=== PATIENT | male | born 1930 | race Caucasian/White ===

== ENCOUNTER 2017-04-29 10:58 | Inpatient (IN) | payer OTHER ==
[~2017-04-29] VITALS: Ht 185.4 cm; Wt 69.4 kg
[2017-04-29 11:43] VITALS: BP 143/81
--- NOTE | 2017-04-29 11:56 | EKG ---
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
[2017-04-29 12:08] LABS: BASO % 0 % (0-3); EOS % 0 % (0-3); HEMATOCRIT 31.1 % (39.0-53.0); HEMOGLOBIN 10.4 g/dL (13.0-17.5); LYMPH # 0.4 x10^3/uL (1.0-4.8); LYMPH % 6 % (24-48); MEAN CORPUSCULAR HEMOGLOBIN 31 pg (25-35); MEAN CORPUSCULAR HGB CONC 33 g/dL (31-37); MEAN CORPUSCULAR VOLUME 92 fL (79-100); MONO # 0.4 x10^3/uL (0.0-1.1); MONO % 6 % (0-9); NEUT # 5.5 x10^3uL (1.8-7.7); NEUT % 87 % (31-73); PLATELET COUNT 123 x10^3/uL (140-400); RED BLOOD COUNT 3.36 x10^6/uL (4.30-5.70); RED CELL DISTRIBUTION WIDTH 20.1 % (11.5-14.5); WHITE BLOOD COUNT 6.4 x10^3/uL (4.0-11.0)
[2017-04-29 12:18] LABS: ALBUMIN 2.7 g/dL (3.4-5.0); ALBUMIN/GLOBULIN RATIO 0.7 (1.0-1.7); CALCIUM 8.7 mg/dL (8.5-10.1); GFR 70.5; MAGNESIUM 1.9 mg/dL (1.8-2.4); TOTAL BILIRUBIN 0.9 mg/dL (0.2-1.0); TOTAL PROTEIN 6.6 g/dL (6.4-8.2)
[2017-04-29] MEDS ORDERED: FURO40TA4 PO (13:05)
[2017-04-29] MEDS ORDERED: IPRA3AMP NEB (13:05)
[2017-04-29] MEDS ORDERED: POTA10TA10 PO (13:05)
[2017-04-29 13:29] LABS: ANISOCYTOSIS MOD; OVALOCYTES MOD; PLT ESTIMATE DECREASED (ADEQUATE); TEAR DROP CELLS FEW
[2017-04-29] MEDS: FUROSEMIDE 40 MG/4 ML VIAL IVP SCH (13:57)
[2017-04-29 14:55] LABS: BACTERIA,URINE 0 /HPF (0-FEW); BILIRUBIN,URINE NEG (NEG); CLARITY,URINE CLEAR; COLOR,URINE YELLOW; GLUCOSE,URINE NEG (NEG); NITRITE,URINE NEG (NEG); RBC,URINE 0 /HPF (0-2); SQUAMOUS EPITHELIAL CELL,UR OCC /LPF; UROBILINOGEN,URINE 0.2 mg/dL (0.2 mg/dL); WBC,URINE OCC /HPF (0-4)
--- NOTE | 2017-04-29 16:17 | PDOC2 ---
EMELY BROCK OUTSIDE UPHOLSTERER 04/29/17 1617: CONSULT Date of Admission DATE: 04/29/17 TIME: 16:00 Reason for Consult: Congestive heart failure Referring Physician: Dr Buchanan History of Present Illness this is a pleasant 86-year-old male who presented to his primary care office yesterday with chief complaint of shortness of breath. The patient does have an extensive past cardiac history which includes a history of coronary artery disease status post CABG several years ago. The patient also has a history of chronic atrial fibrillation, heart failure with preserved ejection fraction, essential hypertension, pleural effusion and hyperlipidemia. yesterday he went into his primary care doctor's office with chief complaint of shortness of breath. He had lab work done that showed he had an elevated D-dimer and the asked him to have a CT scan done. Today he went in to have the CT and was found to have a large pleural effusion and he was then asked to be a direct admit to [facility]. He has had some swelling in his lower extremities left greater than right which is common for him. He has noticed shortness of breath walking less than 200 feet distance. He has noticed when he lays back at night he would be short of breath but is not awaken up gasping for breath. He denies any chest pain or palpitations. He does have a prior history of pleural effusion which had to be to drain twice last year. Of note, the patient has been trialed on beta-aurelia as well as digoxin, but did not tolerate these medications in the past due to significant bradycardia. He also has been talked to about taking cholesterol medication and anticoagulation and has refused. At this point he is resting in bed getting his echocardiogram done without significant shortness of breath. His bed is elevated at 45. Past Medical History - Is significant for chronic atrial fibrillation, diastolic heart failure, coronary artery disease status post coronary artery bypass grafting. Hyperlipidemia. Hypertension. Bradycardia Surgical History -is significant for coronary artery bypass grafting, back surgery and hernia repair. Family History Brother - Hodgkin's disease (clinical) ( age: 56) - Heart disease ( age: 56) Father - by electrocution ( age: 56) Mother - Rheumatoid arthritis ( age: 70) Social History Occupation: Retired Marital status: Live alone or with others?: alone Number of children: 7 Diet: Regular Exercise level: Occasional (Notes: ball room dancing) Smoking Status: Never smoker Alcohol intake: Occasional Caffeine intake: Moderate (Notes: 1-2 glasses daily) Allergies - no known drug allergies Medications-see below Review of a systems- review of 10 organ systems is negative except for as above. Physical Exam Constitutional: General Appearance: well-nourished and appears stated age. Level of Distress: comfortable. Psychiatric: Mental Status: alert and normal affect. Orientation: oriented to time, place, and person. Eyes: Lids and Conjunctivae: anicteric and no discharge. Pupils: PERRLA. ENMT: Ears: no lesions on external ear. Nose: no lesions on external nose. Oropharynx: no cyanosis or pallor. Neck: Neck: supple and no masses. Carotid Arteries: no bruits or thrills and bilateral normal upstroke. Jugular Veins: normal jugular venous pressure. Cervical Lymph Nodes: non tender or not enlarged. Thyroid: not enlarged or non tender. Lungs: Respiratory Effort: unlabored. Chest Exam: no chest wall tenderness. Auscultation: no wheezing or rhonchi and clear. Cardiovascular: Rate And Rhythm: irregularly irregular. Heart Sounds: no rub, gallop, or click and physiologically split S2 and S1 varying intensity. Systolic Murmur: grade 2/6 at the LUSB . Extremities: no cyanosis and lower extremity edema left greater than right +1 Peripheral Pulses: Pulses: full and equal in all extremities except if noted. Radial Pulse: normal. Femoral Pulse: normal. Abdomen: Inspection and Palpation: non distended or tender, no bruit or masses, and soft. Neurologic: Neurological: Grossly intact with no focal deficits. Skin: Inspection and Palpation: warm and dry. Procedure Documentation ABDOMINAL AORTA / ILIAC IMAGING IMPRESSION (07/17/16): Normal appearing abdominal aorta with mild plaque, and no significant flow limiting lesions. No evidence of abdominal aortic aneurysm noted. Normal sized bilateral common iliac arteries. LEXISCAN NUCLEAR STRESS TEST IMPRESSION (11/25/2015): Hemodynamic response: There was a normal heart rate and a normal blood pressure response to stress. Clinical response: There was no chest pain during stress. Arrhythmias: Atrial fibrillation. Stress ECG: There were no significant stress induced ECG changes. Myocardial perfusion: There was a small, moderately intense, fixed septal defect with no evidence of ischemia. Wall motion: Wall motion analysis revealed paradoxical septal motion secondary to unclear etiology. Ejection fraction: 78%. No previous study available for comparison. ECHOCARDIOGRAM IMPRESSION (11/25/2015): The left ventricle is normal in size. There is mild to moderate concentric left ventricular hypertrophy. The left ventricular systolic function is normal with an estimated ejection fraction of 60-65%. The left ventricular diastolic function could not be determined on this study. The right ventricle appears moderately dilated but with normal function. The left atrium appears moderately dilated. The right atrium appears severely dilated. There is a prominent Chiari network in the right ventricle and atrium. The inferior vena cava is dilated and does not respond normally to respiration, which is consistent with elevated right atrial pressure. There appears to be a right pleural effusion. The proximal ascending aorta appears mildly dilated at 3.5 cm. There is mild aortic valve sclerosis. There is mild mitral valve thickening with normal excursion. There is moderate to severe tricuspid regurgitation. The estimated pulmonary artery systolic pressure is 49 mmHg, consistent with moderate pulmonary hypertension. No previous study available for comparison. Assessment / Plan Acute on chronic heart failure, diastolic. Agree with changing Lasix to IV. He has had recurrent pleural effusion in the past which has had to be tapped. May need to consider repeat thoracentesis. Atrial fibrillation, Chronic. His rate is well controlled without AV claudia blocking agents. We had a short discussion on anticoagulation and at this point he is not interested. Coronary arteriosclerosis in [place] artery with history of CABG- Lexiscan nuclear stress test 11/2015 demonstrated no evidence of ischemia. The patient denies any anginal symptoms. Stable. Hyperlipidemia - check fasting lipids Current Medications Current Medications Furosemide (Lasix) 40 mg DAILY IVP Last administered on 04/29/17at 13:57; Start 04/29/17 at 13:00 Active Scripts Active Reported Potassium Chloride 10 Meq Tablet.er 20 Meq PO DAILY Furosemide 40 Mg Tablet 40 Mg PO BID Duoneb 0.5-3(2.5) Mg/3 Ml (Albuterol/Ipratropium) 3 Ml Ampul.neb 3 Ml NEB QID Allergies: Coded Allergies: No Known Drug Allergies (Unverified , 04/29/17) VITALS Vital Signs Date Time Temp Pulse Resp B/P (MAP) Pulse Ox O2 Delivery O2 Flow Rate FiO2 04/29/17 11:43 97.9 83 22 143/81 (101) 94 Room Air Labs Laboratory Tests Test 04/29/17 11:39 04/29/17 11:45 04/29/17 14:20 White Blood Count 6.4 x10^3/uL (4.0-11.0) Red Blood Count 3.36 x10^6/uL (4.30-5.70) Hemoglobin 10.4 g/dL (13.0-17.5) Hematocrit 31.1 % (39.0-53.0) Mean Corpuscular Volume 92 fL (79-100) Mean Corpuscular Hemoglobin 31 pg (25-35) Mean Corpuscular Hemoglobin Concent 33 g/dL (31-37) Red Cell Distribution Width 20.1 % (11.5-14.5) Platelet Count 123 x10^3/uL (140-400) Neutrophils (%) (Auto) 87 % (31-73) Lymphocytes (%) (Auto) 6 % (24-48) Monocytes (%) (Auto) 6 % (0-9) Eosinophils (%) (Auto) 0 % (0-3) Basophils (%) (Auto) 0 % (0-3) Neutrophils # (Auto) 5.5 x10^3uL (1.8-7.7) Lymphocytes # (Auto) 0.4 x10^3/uL (1.0-4.8) Monocytes # (Auto) 0.4 x10^3/uL (0.0-1.1) Eosinophils # (Auto) 0.0 x10^3/uL (0.0-0.7) Basophils # (Auto) 0.0 x10^3/uL (0.0-0.2) Platelet Estimate Decreased (ADEQUATE) Anisocytosis Mod Tear Drop Cells Few Ovalocytes Mod D-Dimer (Maricruz) 2.13 mg/L (0.00-0.50) Sodium Level 140 mmol/L (136-145) Potassium Level 4.0 mmol/L (3.5-5.1) Chloride Level 105 mmol/L (98-107) Carbon Dioxide Level 28 mmol/L (21-32) Anion Gap 7 (6-14) Blood Urea Nitrogen 23 mg/dL (8-26) Creatinine 1.0 mg/dL (0.7-1.3) Estimated GFR (Cockcroft-Gault) 70.5 BUN/Creatinine Ratio 23 (6-20) Glucose Level 87 mg/dL (70-99) Calcium Level 8.7 mg/dL (8.5-10.1) Magnesium Level 1.9 mg/dL (1.8-2.4) Total Bilirubin 0.9 mg/dL (0.2-1.0) Aspartate Amino Transf (AST/SGOT) 26 U/L (15-37) Alanine Aminotransferase (ALT/SGPT) 14 U/L (16-63) Alkaline Phosphatase 80 U/L (46-116) Creatine Kinase 37 U/L (39-308) Creatine Kinase MB (Mass) 1.1 ng/mL (0.0-3.6) Creatine Kinase MB Relative Index 3.0 % (0-4) Troponin I Quantitative < 0.017 ng/mL (0-0.055) ME-Nik-L-Type Natriuretic Peptide 2015 pg/mL (0-449) Total Protein 6.6 g/dL (6.4-8.2) Albumin 2.7 g/dL (3.4-5.0) Albumin/Globulin Ratio 0.7 (1.0-1.7) Lactic Acid Level 1.7 mmol/L (0.4-2.0) Urine Collection Type Unknown Urine Color Yellow Urine Clarity Clear Urine pH 6.5 Urine Specific [place] 1.010 Urine Protein 30 mg/dl (NEG-TRACE) Urine Glucose (UA) Neg mg/dL (NEG) Urine Ketones (Stick) Neg mg/dL (NEG) Urine Blood Neg (NEG) Urine Nitrite Neg (NEG) Urine Bilirubin Neg (NEG) Urine Urobilinogen Dipstick 0.2 mg/dL (0.2 mg/dL) Urine Leukocyte Esterase Neg (NEG) Urine RBC 0 /HPF (0-2) Urine WBC Occ /HPF (0-4) Urine Squamous Epithelial Cells Occ /LPF Urine Bacteria 0 /HPF (0-FEW) Urine Mucus Slight /LPF LEON SPRING Jr, MD 04/30/17 0622: CONSULT Allergies: Coded Allergies: No Known Drug Allergies (Unverified , 04/29/17) Assessment/Plan The patient was seen by Emely Brock APRN and I have reviewed her findings and plan and agree with above. Due to staffing constraints, we did not have an attending available on this day to see the patient. Leon Spring Jr., MD Problems: EMELY BROCK APRN Apr 29, 2017 16:17 LEON SPRING Jr, MD Apr 30, 2017 06:22
[2017-04-29 16:32] VITALS: BP 129/77
[2017-04-29 19:21] VITALS: BP 124/73
[2017-04-29] MEDS: cefTRIAXone IV Push 1 GM VIAL. IVP SCH (20:09)
[2017-04-29] MEDS: LACTOBACILLUS RHAMNOSUS GG 1 CAPSULE. PO SCH (20:10)
[2017-04-29] MEDS: POTASSIUM CHLORIDE 20 MEQ TABLET.ER. PO SCH (20:12)
[2017-04-29] MEDS: IPRATRPIUM/ALBUTEROL 0.5/2.5MG 3 ML NEBU. NEB SCH (21:15)
[2017-04-29] MEDS: HEPARIN PF for SUB-Q USE 5,000 UNIT/0.5 ML VIAL. SQ SCH (21:49)
[2017-04-29 23:00] VITALS: BP 103/57
[2017-04-30] VITALS (7 sets, daily range): BP systolic 106–138; BP diastolic 57–68
[2017-04-30] MEDS: IPRATRPIUM/ALBUTEROL 0.5/2.5MG 3 ML NEBU. NEB SCH ×4 (05:52→20:56)
[2017-04-30] MEDS: HEPARIN PF for SUB-Q USE 5,000 UNIT/0.5 ML VIAL. SQ SCH ×3 (06:24→20:52)
[2017-04-30 06:37] LABS: BASO % 0 % (0-3); EOS % 1 % (0-3); HEMOGLOBIN 9.6 g/dL (13.0-17.5); LYMPH # 0.6 x10^3/uL (1.0-4.8); LYMPH % 14 % (24-48); MEAN CORPUSCULAR HEMOGLOBIN 30 pg (25-35); MEAN CORPUSCULAR HGB CONC 33 g/dL (31-37); MEAN CORPUSCULAR VOLUME 91 fL (79-100); MONO # 0.3 x10^3/uL (0.0-1.1); MONO % 7 % (0-9); NEUT # 3.6 x10^3uL (1.8-7.7); NEUT % 79 % (31-73); PLATELET COUNT 107 x10^3/uL (140-400); RED BLOOD COUNT 3.18 x10^6/uL (4.30-5.70); RED CELL DISTRIBUTION WIDTH 19.7 % (11.5-14.5); WHITE BLOOD COUNT 4.6 x10^3/uL (4.0-11.0)
[2017-04-30 06:48] LABS: ALBUMIN 2.3 g/dL (3.4-5.0); ALBUMIN/GLOBULIN RATIO 0.7 (1.0-1.7); GFR 70.5; MAGNESIUM 1.6 mg/dL (1.8-2.4); POTASSIUM 4.3 mmol/L (3.5-5.1); TOTAL BILIRUBIN 0.7 mg/dL (0.2-1.0); TOTAL PROTEIN 5.8 g/dL (6.4-8.2)
[2017-04-30] MEDS ORDERED: MAGNESIUM SULFATE 2GM 50 ML IV ONE (07:30)
[2017-04-30] MEDS: LACTOBACILLUS RHAMNOSUS GG 1 CAPSULE. PO SCH ×2 (08:00→20:51)
[2017-04-30] MEDS: POTASSIUM CHLORIDE 20 MEQ TABLET.ER. PO SCH (08:00)
[2017-04-30] MEDS: FUROSEMIDE 40 MG/4 ML VIAL IVP SCH ×2 (08:01→16:55)
--- NOTE | 2017-04-30 08:35 | PDOC ---
EMELY SWAIN GAME PRESERVE MANAGER 04/30/17 0835: PROGRESS NOTES Assessment We are seeing the patient for congestive heart failure Acute on chronic heart failure, diastolic. He has recieved two doses of IV Lasix. His albumin is 2.3 promoting the 3rd spacing of fluid. He has had recurrent pleural effusion in the past which has had to be tapped by Dr Valdivia - [facility] at [facility]. May need to consider repeat thoracentesis and increasing protein. Atrial fibrillation, Chronic. His rate is well controlled without AV claudia blocking agents. We had a longer discussion about anticoagulation and he will start aspirin and would consider taking once a day Xarelto as an OP. Hold off on starting till thoracentesis is complete. Coronary arteriosclerosis in [place] artery with history of CABG- Lexiscan nuclear stress test 11/2015 demonstrated no evidence of ischemia. The patient denies any anginal symptoms. Stable. Hyperlipidemia - lipids pending Problems: Subjective He has been up walking and breathing feels improved. He is not requiring supplemental oxygen. He does have orthopnea and mild cough. He denies any chest pain or palpitations. Objective Vital Signs Date Time Temp Pulse Resp B/P (MAP) Pulse Ox O2 Delivery O2 Flow Rate FiO2 04/30/17 08:18 Room Air 04/30/17 06:00 97.8 104 16 106/57 (73) 95 04/30/17 05:47 2.0 Intake and Output 04/30/17 06:59 Intake Total 2210 ml Output Total 2850 ml Balance -640 ml Intake Oral 2210 ml Output Urine Total 2850 ml Abdomen: Normal bowel sounds, Soft, No tenderness Heart: Regular rate, Normal S1, Normal S2, Other (Irregular rhythm ) Extremities: No edema, Normal pulses General: Alert, Oriented X3, Cooperative Lungs: Other (diminished) Psych/Mental Status: Mental status NL, Mood NL Review of Relevant I have reviewed the following items mansi (where applicable) has been applied. Labs Laboratory Tests Test 04/29/17 11:30 04/29/17 11:39 04/29/17 11:45 04/29/17 14:20 Nasal Screen MRSA (PCR) Negative (Negative) White Blood Count 6.4 x10^3/uL (4.0-11.0) Red Blood Count 3.36 x10^6/uL (4.30-5.70) Hemoglobin 10.4 g/dL (13.0-17.5) Hematocrit 31.1 % (39.0-53.0) Mean Corpuscular Volume 92 fL (79-100) Mean Corpuscular Hemoglobin 31 pg (25-35) Mean Corpuscular Hemoglobin Concent 33 g/dL (31-37) Red Cell Distribution Width 20.1 % (11.5-14.5) Platelet Count 123 x10^3/uL (140-400) Neutrophils (%) (Auto) 87 % (31-73) Lymphocytes (%) (Auto) 6 % (24-48) Monocytes (%) (Auto) 6 % (0-9) Eosinophils (%) (Auto) 0 % (0-3) Basophils (%) (Auto) 0 % (0-3) Neutrophils # (Auto) 5.5 x10^3uL (1.8-7.7) Lymphocytes # (Auto) 0.4 x10^3/uL (1.0-4.8) Monocytes # (Auto) 0.4 x10^3/uL (0.0-1.1) Eosinophils # (Auto) 0.0 x10^3/uL (0.0-0.7) Basophils # (Auto) 0.0 x10^3/uL (0.0-0.2) Platelet Estimate Decreased (ADEQUATE) Anisocytosis Mod Tear Drop Cells Few Ovalocytes Mod D-Dimer (Maricruz) 2.13 mg/L (0.00-0.50) Sodium Level 140 mmol/L (136-145) Potassium Level 4.0 mmol/L (3.5-5.1) Chloride Level 105 mmol/L (98-107) Carbon Dioxide Level 28 mmol/L (21-32) Anion Gap 7 (6-14) Blood Urea Nitrogen 23 mg/dL (8-26) Creatinine 1.0 mg/dL (0.7-1.3) Estimated GFR (Cockcroft-Gault) 70.5 BUN/Creatinine Ratio 23 (6-20) Glucose Level 87 mg/dL (70-99) Calcium Level 8.7 mg/dL (8.5-10.1) Magnesium Level 1.9 mg/dL (1.8-2.4) Total Bilirubin 0.9 mg/dL (0.2-1.0) Aspartate Amino Transf (AST/SGOT) 26 U/L (15-37) Alanine Aminotransferase (ALT/SGPT) 14 U/L (16-63) Alkaline Phosphatase 80 U/L (46-116) Creatine Kinase 37 U/L (39-308) Creatine Kinase MB (Mass) 1.1 ng/mL (0.0-3.6) Creatine Kinase MB Relative Index 3.0 % (0-4) Troponin I Quantitative < 0.017 ng/mL (0-0.055) RJ-Ctm-N-Type Natriuretic Peptide 2015 pg/mL (0-449) Total Protein 6.6 g/dL (6.4-8.2) Albumin 2.7 g/dL (3.4-5.0) Albumin/Globulin Ratio 0.7 (1.0-1.7) Lactic Acid Level 1.7 mmol/L (0.4-2.0) Urine Collection Type Unknown Urine Color Yellow Urine Clarity Clear Urine pH 6.5 Urine Specific [place] 1.010 Urine Protein 30 mg/dl (NEG-TRACE) Urine Glucose (UA) Neg mg/dL (NEG) Urine Ketones (Stick) Neg mg/dL (NEG) Urine Blood Neg (NEG) Urine Nitrite Neg (NEG) Urine Bilirubin Neg (NEG) Urine Urobilinogen Dipstick 0.2 mg/dL (0.2 mg/dL) Urine Leukocyte Esterase Neg (NEG) Urine RBC 0 /HPF (0-2) Urine WBC Occ /HPF (0-4) Urine Squamous Epithelial Cells Occ /LPF Urine Bacteria 0 /HPF (0-FEW) Urine Mucus Slight /LPF Test 04/30/17 05:44 White Blood Count 4.6 x10^3/uL (4.0-11.0) Red Blood Count 3.18 x10^6/uL (4.30-5.70) Hemoglobin 9.6 g/dL (13.0-17.5) Hematocrit 29.0 % (39.0-53.0) Mean Corpuscular Volume 91 fL (79-100) Mean Corpuscular Hemoglobin 30 pg (25-35) Mean Corpuscular Hemoglobin Concent 33 g/dL (31-37) Red Cell Distribution Width 19.7 % (11.5-14.5) Platelet Count 107 x10^3/uL (140-400) Neutrophils (%) (Auto) 79 % (31-73) Lymphocytes (%) (Auto) 14 % (24-48) Monocytes (%) (Auto) 7 % (0-9) Eosinophils (%) (Auto) 1 % (0-3) Basophils (%) (Auto) 0 % (0-3) Neutrophils # (Auto) 3.6 x10^3uL (1.8-7.7) Lymphocytes # (Auto) 0.6 x10^3/uL (1.0-4.8) Monocytes # (Auto) 0.3 x10^3/uL (0.0-1.1) Eosinophils # (Auto) 0.0 x10^3/uL (0.0-0.7) Basophils # (Auto) 0.0 x10^3/uL (0.0-0.2) Sodium Level 139 mmol/L (136-145) Potassium Level 4.3 mmol/L (3.5-5.1) Chloride Level 106 mmol/L (98-107) Carbon Dioxide Level 27 mmol/L (21-32) Anion Gap 6 (6-14) Blood Urea Nitrogen 21 mg/dL (8-26) Creatinine 1.0 mg/dL (0.7-1.3) Estimated GFR (Cockcroft-Gault) 70.5 BUN/Creatinine Ratio 21 (6-20) Glucose Level 82 mg/dL (70-99) Calcium Level 8.0 mg/dL (8.5-10.1) Magnesium Level 1.6 mg/dL (1.8-2.4) Total Bilirubin 0.7 mg/dL (0.2-1.0) Aspartate Amino Transf (AST/SGOT) 21 U/L (15-37) Alanine Aminotransferase (ALT/SGPT) 11 U/L (16-63) Alkaline Phosphatase 69 U/L (46-116) Total Protein 5.8 g/dL (6.4-8.2) Albumin 2.3 g/dL (3.4-5.0) Albumin/Globulin Ratio 0.7 (1.0-1.7) Medications Current Medications Furosemide (Lasix) 40 mg DAILY IVP Last administered on 04/30/17at 08:01; Start 04/29/17 at 13:00 Albuterol/ Ipratropium (Duoneb) 3 ml RTQID NEB Last administered on 04/30/17 05 :52; Start 04/29/17 at 20:00 Non-Formulary Medication 20 meq DAILY PO ; Start 04/30/17 at 09:00; Status UNV Ceftriaxone Sodium 1 gm/ Sodium Chloride 50 ml @ 100 mls/hr Q24H IV ; Start 04/29/17 at 18:30; Status UNV Levofloxacin/ Dextrose 150 ml @ 150 mls/hr Q24H IV Last administered on at 20:09; Start 04/29/17 at 20:00 Heparin Sodium (Porcine) (Heparin Sq) 5,000 unit Q8HRS SQ Last administered on 04/30/17at 06:24; Start 04/29/17 at 22:00 Potassium Chloride (Klor-Con) 20 meq DAILYWBKFT PO Last administered on at 08:00; Start 04/29/17 at 21:00 Ceftriaxone Sodium (Rocephin) 1 gm Q24H IVP Last administered on 04/29/17at 20:09 ; Start 04/29/17 at 19:30 Lactobacillus Rhamnosus (Culturelle) 1 cap BID PO Last administered on at 08:00; Start 04/29/17 at 21:00 Magnesium Sulfate 50 ml @ 25 mls/hr 1X ONCE IV Last administered on 04/30/17at 08:01; Start 04/30/17 at 07:30; Stop 04/30/17 at 09:29 Active Scripts Active Reported Potassium Chloride 10 Meq Tablet.er 20 Meq PO DAILY Furosemide 40 Mg Tablet 40 Mg PO BID Duoneb 0.5-3(2.5) Mg/3 Ml (Albuterol/Ipratropium) 3 Ml Ampul.neb 3 Ml NEB QID Vitals/I & O Vital Sign - Last 24 Hours 04/29/17 04/29/17 04/29/17 04/29/17 11:43 16:32 19:21 20:00 Temp 97.9 97.9 97.6 Pulse 83 74 71 Resp 22 22 20 B/P (MAP) 143/81 (101) 129/77 (94) 124/73 (90) Pulse Ox 94 94 97 O2 Delivery Room Air Room Air Room Air Room Air 04/29/17 04/29/17 04/29/17 04/30/17 20:54 23:00 23:59 04:00 Temp 98.2 Pulse 92 Resp 20 B/P (MAP) 103/57 (72) Pulse Ox 94 94 O2 Delivery Room Air Room Air Room Air Room Air 04/30/17 04/30/17 04/30/17 05:47 06:00 08:18 Temp 97.8 Pulse 104 Resp 16 B/P (MAP) 106/57 (73) Pulse Ox 96 95 O2 Delivery Nasal Cannula Room Air Room Air O2 Flow Rate 2.0 Intake and Output 04/29/17 04/29/17 04/30/17 14:59 22:59 06:59 Intake Total 700 ml 890 ml 620 ml Output Total 1600 ml 1250 ml Balance 700 ml -710 ml -630 ml LEON GAGE Jr, MD 04/30/17 0946: PROGRESS NOTES Assessment CHF, acute on chronic, with preserved ejection fraction. His symptoms are markedly improved today. We will obtain a follow-up chest x-ray to assess the pleural effusions. I will change his Lasix to twice daily. We will consider a thoracentesis if there is still a significant amount of right pleural fluid. I am not sure we should tapped both sides on the same day. If Radiology can tap the right side, and his symptoms are improved, he may be able to be discharged home later today or tomorrow. Atrial fibrillation, chronic. He has not been on anticoagulation in the past. Once he recovers from this illness, we may want to consider starting anticoagulation. Coronary artery disease. He is not having any angina. Due to his pulmonary disease, he is not a good candidate for beta-aurelia. He also has somewhat low blood pressures. We are holding off on treating him with aspirin until we determine whether not he will be on oral anticoagulation for the atrial fibrillation. Pure hypercholesterolemia. Lipid panel is pending. He may benefit from a low- dose of statin medication. Problems: Subjective We are seeing him for CHF. S: His breathing is much improved. He is ambulating without any significant dyspnea on exertion. He denies chest pain, palpitations, syncope, or lower extremity edema. Abdomen: Normal bowel sounds, Soft Heart: Normal S1, Normal S2, Other (Irregularly irregular. 2/6 systolic ejection murmur.) Extremities: No clubbing, No cyanosis, No edema, Normal pulses General: Alert, Oriented X3, Cooperative, No acute distress HEENT: Atraumatic, EOMI, Mucous membr. moist/pink Lungs: Clear to auscultation, Other ( Decreased breath sounds at the bases, right worse than left.) Neck: No JVD, +2 carotid pulse wo bruit Neuro: Normal gait, Normal speech, Strength at 5/5 X4 ext, Normal tone, Cranial nerves 3-12 NL Psych/Mental Status: Mental status NL, Mood NL Skin: No rashes, No breakdown EMELY SWAIN APRN Apr 30, 2017 08:35 LEON GAGE Jr, MD Apr 30, 2017 09:46
--- NOTE | 2017-04-30 08:39 | CARD ---
MR#: [id number] Date of Study: 04/29/2017 Ordering Physician: MARYSOL PATEL, Referring Physician: MARYSOL PATEL, Tech: Carmen Menjivar LUTHER APPROVED REPORT EXAM: Two-dimensional and M-mode echocardiogram with Doppler and color Doppler. Other Information Quality : Good INDICATION ICD: I50.33 Congestive Heart Failure 2D DIMENSIONS RVDd3.7 (2.9-3.5cm)Left Atrium(2D)4.9 (1.6-4.0cm) IVSd1.5 (0.7-1.1cm)Aortic Root(2D)3.3 (2.0-3.7cm) LVDd3.6 (3.9-5.9cm)LVOT Diameter2.2 (1.8-2.4cm) PWd1.2 (0.7-1.1cm)LVDs2.5 (2.5-4.0cm) FS (%) 29.5 %SV30.4 ml LVEF(%)57.4 (>50%) Aortic Valve AoV Peak Darell.157.7cm/sAoV VTI26.9cm AO Peak GR.9.9mmHgLVOT Peak Darell.92.8cm/s LVOT VTI 17.18cmAO Mean GR.6mmHg ELIA (VMAX)2.97dg9GAZ (VTI)2.41cm2 Mitral Valve MV E Ywkcqolu311.6cm/sMV DECEL CEVA369nm MV A Velocity4.9cm/sE/A Ratio32.4 Tricuspid Valve TR P. Arhhiirw069yr/sRAP QLAYNEAK62waDi TR Peak Gr.83vfRbJYCT35igLv LEFT VENTRICLE The left ventricle is normal size. There is mild to moderate concentric left ventricular hypertrophy. The left ventricular systolic function is normal. The estimated ejection fraction is 60-65%. There i s paradoxical septal motion of unclear etiology. The left ventricular diastolic function is indetermi sita. RIGHT VENTRICLE The right ventricle is normal size. The right ventricular systolic function is normal. ATRIA The left atrium is mildly dilated. The right atrium is severely dilated. AORTIC VALVE There is mild aortic valve sclerosis. There is trace aortic regurgitation. There is no significant ao rtic valvular stenosis. MITRAL VALVE The mitral valve is calcified but opens well. There is no mitral valve stenosis. There is mild mitral regurgitation. TRICUSPID VALVE The tricuspid valve is normal in structure and function. There is moderate-severe tricuspid regurgita tion. The PA pressure is estimated at 55 mmHg. There is moderate pulmonary hypertension. PULMONIC VALVE The pulmonary valve is normal in structure and function. There is trace pulmonic valvular regurgitati on. GREAT VESSELS The aortic root is normal in size. The ascending aorta is normal in size. The inferior vena cava is d ilated and there is less than 50% response to inspiration, which is consistent with markedly elevated right atrial pressure. PERICARDIAL EFFUSION There is large left pleural effusion. There is no evidence of significant pericardial effusion. Critical Notification Critical Value: No <Conclusion> The left ventricle is normal size. There is mild to moderate concentric left ventricular hypertrophy. There is paradoxical septal motion of unclear etiology. The left ventricular systolic function is normal. The estimated ejection fraction is 60-65%. The left ventricular diastolic function is indeterminate. The left atrium is mildly dilated. The right atrium is severely dilated. The inferior vena cava is dilated and there is less than 50% response to inspiration, which is consis tent with markedly elevated right atrial pressure. There is mild aortic valve sclerosis. There is trace aortic regurgitation. There is mild mitral regurgitation. There is moderate-severe tricuspid regurgitation. The PA pressure is estimated at 55 mmHg. There is moderate pulmonary hypertension. Signed by : Dipak Spring JR, MD Electronically Approved : 04/30/2017 08:39:23
[2017-04-30] MEDS ORDERED: NON FORMULARY ITEM (Potassium Chloride 20 MEQ) PO SCH (09:00)
--- NOTE | 2017-04-30 09:53 | RAD ---
Two-view chest x-ray Clinical indications: Pleural effusions. Follow-up study. Comparison: Chest CT press set up person view dated April 29, 2017. Findings: Moderate-sized bilateral pleural effusions right greater than left again evident and have not changed significantly. IMPRESSION bibasilar compressive atelectasis or infiltrates are seen. No parahilar pulmonary edema is seen. No pneumothorax is evident. The heart size is enlarged but stable. Sternotomy is again evident. The mediastinum is stable. IMPRESSION: Stable bilateral pleural effusions.
--- NOTE | 2017-04-30 16:31 | RAD ---
ULTRASOUND-GUIDED THORACENTESIS Indications: Bilateral pleural effusions right greater than left. Shortness of breath. Physician order is for thoracentesis on the right side since it is larger. Procedure: The procedure and possible complications including bleeding infection and pneumothorax were explained. The patient provided both verbal and written consent. A timeout was performed which confirmed the name of the patient and date of and the type of procedure and the side of the procedure. Allergies to medications were reviewed. No allergy to lidocaine. The patient was given heparin PF SQ at 6:30 AM this morning and therefore is over the 6 hours. Sonography of the right posterior chest demonstrates a prominent right-sided pleural effusion. An appropriate skin mansi was made. This area of the chest was prepped and draped in the usual sterile fashion with ChloraPrep. Total of 5 cc of 1% lidocaine was utilized for local anesthesia. Using sterile technique, a small skin neck was made and a Saf-T centesis needle cannula was inserted into the right pleural space and the pigtail catheter was placed coaxially into the pleural space and the needle cannula was removed. Reddish serous fluid was aspirated into a 50 cc syringe and this was sent to the laboratory for further processing as per the orders of the patient's physician. A total of 1500 cc of fluid was aspirated. The patient developed some shortness of breath at this time. Therefore, the stopcock was turned off and the catheter was removed. After a few minutes, the patient felt better and the shortness of breath improved. Sonography of the right chest demonstrates residual pleural effusion on the right side. A sterile bandage was applied to the puncture site. The patient tolerated the procedure well otherwise. Follow-up chest x-rays will be performed. IMPRESSION: Ultrasound-guided right-sided thoracentesis was performed. Total of 1500 cc of reddish serous fluid was aspirated. 50 cc syringe was sent to the laboratory for further evaluation. AP EXPIRATION CHEST X-RAY WAS PERFORMED AT 1533 Findings: In comparison to the previous chest x-ray performed earlier same day at 0927 hours, there has been a decrease in the amount of pleural effusion on the right side. The pleural effusion on the right side is now smaller than the left-sided pleural effusion. There is improved aeration of the right lung base. A small lateral pneumothorax is seen. This most likely is due to introduction of air through the thoracentesis catheter. No apical pneumothorax is seen. IMPRESSION: Decrease in size of right-sided pleural effusion after thoracentesis. A small lateral pneumothorax is seen most likely due to introduction of air from the thoracentesis catheter during the procedure. Recommend follow-up chest x-ray in one hour.
[2017-04-30 17:32] LABS: BF CLARITY HAZY; BF COLOR AMBER; BF RBC COUNT 10742; BF SOURCE THORACENTESIS; BF WBC COUNT 396
[2017-04-30 17:35] LABS: BF MON % 70 %; BF OTHER % 16 %; BF PMN % 14 %
--- NOTE | 2017-04-30 17:38 | RAD ---
Two-view chest x-ray 1716 Clinical indications: Follow-up of pneumothorax and pleural effusion after thoracentesis. Comparison: Same day performed at 1533. IMPRESSION: Again seen are bilateral pleural effusions which are unchanged. Again seen is a small right lateral lower pneumothorax which is unchanged. No right apical pneumothorax is seen.
[2017-04-30] MEDS: levoFLOXacin 750 MG TABLET PO SCH (20:51)
[2017-04-30] MEDS: cefTRIAXone IV Push 1 GM VIAL. IVP SCH (20:51)
[2017-05-01] VITALS (9 sets, daily range): BP systolic 98–132; BP diastolic 58–68
--- NOTE | 2017-05-01 00:06 | PN ---
DATE: 04/30/2017 SUBJECTIVE: An 86-year-old gentleman in with bilateral pleural effusions, congestive heart failure. The patient had a thoracentesis today, took almost 2 liters off. The patient is having some difficulty in breathing now. Repeat chest x-ray is pending to look for any type of pneumothorax according to the x-ray anyway. In any case, the patient is breathing somewhat better. OBJECTIVE: VITAL SIGNS: Blood pressure 113/67, respiratory rate 20, pulse 86, afebrile. GENERAL: The patient is alert. LUNGS: Diminished primarily in the right lower lobe, decreased breath sounds throughout. CARDIOVASCULAR: Irregularly irregular rhythm, 2/6 systolic ejection murmur. ABDOMEN: Soft, nontender, no rebound or any guarding. EXTREMITIES: No clubbing, cyanosis, or edema. NEUROLOGIC: Intact. IMPRESSION: Bilateral pleural effusions, acute on top of chronic diastolic heart failure, bilateral pleural effusions noted, thoracentesis performed by Radiology today, chronic atrial fibrillation, coronary artery disease, pure hypercholesterolemia. PLAN: As above, continue to monitor the patient accordingly and make further evaluation on him and we will repeat labs and x-rays in the morning on him. MARYSOL PATEL MD DR: INDU/nam JOB#: [id number] / [id number]
[2017-05-01] MEDS: IPRATRPIUM/ALBUTEROL 0.5/2.5MG 3 ML NEBU. NEB SCH ×4 (05:10→20:00)
[2017-05-01] MEDS: HEPARIN PF for SUB-Q USE 5,000 UNIT/0.5 ML VIAL. SQ SCH ×3 (06:00→20:07)
[2017-05-01 06:42] LABS: BASO % 0 % (0-3); EOS % 0 % (0-3); HEMATOCRIT 32.5 % (39.0-53.0); HEMOGLOBIN 10.7 g/dL (13.0-17.5); LYMPH # 0.5 x10^3/uL (1.0-4.8); LYMPH % 7 % (24-48); MEAN CORPUSCULAR HEMOGLOBIN 30 pg (25-35); MEAN CORPUSCULAR HGB CONC 33 g/dL (31-37); MEAN CORPUSCULAR VOLUME 92 fL (79-100); MONO # 0.4 x10^3/uL (0.0-1.1); MONO % 7 % (0-9); NEUT # 5.4 x10^3uL (1.8-7.7); NEUT % 85 % (31-73); PLATELET COUNT 126 x10^3/uL (140-400); RED BLOOD COUNT 3.52 x10^6/uL (4.30-5.70); RED CELL DISTRIBUTION WIDTH 19.9 % (11.5-14.5); WHITE BLOOD COUNT 6.4 x10^3/uL (4.0-11.0)
[2017-05-01 06:57] LABS: ALBUMIN 2.5 g/dL (3.4-5.0); ALBUMIN/GLOBULIN RATIO 0.7 (1.0-1.7); CALCIUM 8.3 mg/dL (8.5-10.1); GFR 70.5; MAGNESIUM 1.8 mg/dL (1.8-2.4); POTASSIUM 4.2 mmol/L (3.5-5.1); TOTAL BILIRUBIN 0.8 mg/dL (0.2-1.0); TOTAL PROTEIN 6.3 g/dL (6.4-8.2)
[2017-05-01] MEDS: POTASSIUM CHLORIDE 20 MEQ TABLET.ER. PO SCH (08:11)
[2017-05-01] MEDS: LACTOBACILLUS RHAMNOSUS GG 1 CAPSULE. PO SCH ×2 (08:11→19:57)
[2017-05-01] MEDS: FUROSEMIDE 40 MG/4 ML VIAL IVP SCH ×2 (08:12→13:50)
--- NOTE | 2017-05-01 10:29 | RAD ---
AP chest. History: Pleural effusion, postop AP view was taken of the chest. The heart is enlarged. The patient's had bypass surgery. There are bilateral moderate pleural effusions with little change. There is atelectasis or infiltrates in the lung bases with little change. Upper lung zones are clear. The right pneumothorax has resolved. Impression: 1. Cardiomegaly. 2. Prior bypass. 3. Little change moderate pleural effusions.
[2017-05-01] MEDS: levoFLOXacin 750 MG TABLET PO SCH (19:57)
[2017-05-01] MEDS: cefTRIAXone IV Push 1 GM VIAL. IVP SCH (19:57)
[2017-05-02] MEDS: HEPARIN PF for SUB-Q USE 5,000 UNIT/0.5 ML VIAL. SQ SCH ×3 (06:00→21:34)
[2017-05-02 06:04] VITALS: BP 99/55
[2017-05-02] MEDS: POTASSIUM CHLORIDE 20 MEQ TABLET.ER. PO SCH (08:14)
[2017-05-02] MEDS: LACTOBACILLUS RHAMNOSUS GG 1 CAPSULE. PO SCH ×2 (08:49→20:11)
[2017-05-02] MEDS: FUROSEMIDE 40 MG/4 ML VIAL IVP SCH ×2 (08:50→14:17)
[2017-05-02] MEDS: IPRATRPIUM/ALBUTEROL 0.5/2.5MG 3 ML NEBU. NEB SCH ×4 (09:22→20:38)
[2017-05-02 09:32] VITALS: BP 117/67
[2017-05-02 13:30] VITALS: BP 112/58
[2017-05-02 18:21] VITALS: BP 118/68
[2017-05-02] MEDS: cycloSPORINE 0.05% OPTH 1 DROP DROPERETTE OU SCH (20:11)
[2017-05-02] MEDS: levoFLOXacin 750 MG TABLET PO SCH (20:11)
[2017-05-02] MEDS: cefTRIAXone IV Push 1 GM VIAL. IVP SCH (20:11)
[2017-05-02 20:30] VITALS: BP 117/71
[2017-05-03] MEDS: IPRATRPIUM/ALBUTEROL 0.5/2.5MG 3 ML NEBU. NEB SCH (05:23)
[2017-05-03] MEDS: HEPARIN PF for SUB-Q USE 5,000 UNIT/0.5 ML VIAL. SQ SCH (06:00)
--- NOTE | 2017-05-03 06:08 | PN ---
DATE: 05/01/2017 SUBJECTIVE: An 86-year-old gentleman in with severe congestive heart failure and marked pleural effusions, still having problems with breathing. The patient had pleurocentesis yesterday, took out 1900 mL of fluid; however, the patient still continues to have problems with breathing and using accessory muscles to breathe. PHYSICAL EXAMINATION: VITAL SIGNS: Blood pressure approximately 130/50, respiratory rate 18, pulse 94 and temperature 99.1. GENERAL: The patient is alert and oriented. LUNGS: Markedly diminished primarily in the right lower lobe, crackles and rhonchi noted. CARDIOVASCULAR: Irregularly irregular rhythm. ABDOMEN: Soft, nontender. EXTREMITIES: No clubbing, cyanosis, or edema. ASSESSMENT: Acute respiratory failure, pleural effusions, right greater than that of left. The patient will continued to be monitored carefully. IMPRESSION: Bilateral pleural effusions, acute on top of chronic diastolic heart failure bilateral, post pleurocentesis, chronic atrial fibrillation, coronary artery disease, hypercholesterolemia, acute respiratory distress syndrome. MARYSOL PATEL MD DR: INDU/nam JOB#: [id number] / [id number]
[2017-05-03 06:31] VITALS: BP 114/66
--- NOTE | 2017-05-03 06:34 | PN ---
DATE: 05/02/2017 SUBJECTIVE: The patient is doing relatively well. Of course, he had severe pleural effusion. The x-rays do not show much improvement even though they took off 2 liters of fluid from the right lung. The patient says he is feeling somewhat better. His lungs still show coarse breath sounds and rhonchi noted throughout. PHYSICAL EXAMINATION: VITAL SIGNS: Blood pressure 112/58, respiratory rate 18, pulse 82, afebrile. The patient is still recuperating. He is still receiving PT, OT. Cultures from the fluid were basically unremarkable and other serology showing pleural effusion; otherwise, we will continue to monitor the patient accordingly and make further evaluation, repeat chest x-ray in the morning and make further evaluation and hopefully, ready for discharge at that time. IMPRESSION: Bilateral pleural effusions, acute on top of chronic diastolic heart failure, thoracentesis performed by Radiology, chronic atrial fibrillation, coronary artery disease, and pure hypercholesterolemia. MARYSOL PATEL MD DR: INDU/nam JOB#: [id number] / [id number]
[2017-05-03] MEDS: LACTOBACILLUS RHAMNOSUS GG 1 CAPSULE. PO SCH (07:58)
[2017-05-03] MEDS: POTASSIUM CHLORIDE 20 MEQ TABLET.ER. PO SCH (07:59)
[2017-05-03] MEDS: cycloSPORINE 0.05% OPTH 1 DROP DROPERETTE OU SCH (07:59)
[2017-05-03] MEDS: FUROSEMIDE 40 MG/4 ML VIAL IVP SCH (07:59)
--- NOTE | 2017-05-03 09:31 | RAD ---
Chest, 2 views, 05/03/2017: History: Shortness of breath, follow up thoracentesis Comparison is made to a study from 05/01/2017. There has been a previous median sternotomy. The heart is enlarged. The pulmonary vascularity is within normal limits. There are moderate sized bilateral pleural effusions, similar to those seen on the prior exam. There is moderate underlying bibasilar atelectasis. No new pulmonary abnormality is seen. There is no evidence of pneumothorax. IMPRESSION: 1. Cardiomegaly. 2. Ongoing moderate sized bilateral pleural effusions with moderate underlying bibasilar atelectasis. 3. No significant change since 05/01/2017.
[2017-05-03] MEDS ORDERED: APIX2.5T PO (09:58)
[2017-05-03] MEDS ORDERED: IPRA3AMP NEB (09:58)
[2017-05-03 10:00] VITALS: BP 110/60
--- NOTE | 2017-05-03 13:25 | DS ---
DATE OF DISCHARGE: 05/03/2017 HOSPITAL COURSE: The patient initially came in with increased shortness of breath. The patient was noted to have bilateral pleural effusions, right greater than left. He had thoracentesis and took out 1900 mL of fluid. His lab results on that demonstrated pito, hazy color. He had 70 white blood cells, mononucs, he had 1000 RBCs, glucose was 100, total protein 100, LDH of only 2. In any case, the patient made fairly good progress after that. He was also seen by Cardiology. Culture on the fluid was negative. The patient made good progress. He was discharged home. X-rays did show moderate fluid retention. In any case, the patient made good progress during the rest of his hospitalization. He will be discharged home on a low sodium diet, decreased activity, continued breathing treatments, Lasix, and others as seen on the EMRAD, and decreased activity. He will follow up accordingly. IMPRESSION: Acute on top of chronic diastolic heart failure with bilateral pleural effusions, anemia of chronic disease, wxcr-qh-ckfwqddx protein malnutrition. PLAN: As above. MARYSOL PATEL MD DR: INDU/nam JOB#: [id number] / [id number]
--- NOTE | 2017-05-04 16:58 | PATHOLOGY ---
CYTOPATHOLOGY REPORT CLINICAL HISTORY: Pleural Effusion, SOA SPECIMEN(S) RECEIVED: A.Pleural fluid, Right FINAL DIAGNOSIS: A. Right pleural fluid, ThinPrep and cell block: - No malignant cells identified. Scantily cellular specimen comprised of chronic inflammatory cells and rare mesothelial cell. (JPM:db; 05/04/2017) PATHOLOGIST: Newton Alvarez M.D. REPORT ELECTRONICALLY SIGNED BY: Newton Alvarez M.D. DATE/TIME: 05/04/2017 16:57 GROSS PATHOLOGY: A. Pleural fluid, Right: The specimen is submitted unfixed, labeled "Ector Marx". Received by the Cytology Department is 30 mL of cloudy orange fluid out of a total volume of 1,300 cc. One ThinPrep slide and a formalin fixed cell block were prepared. (mm 05.03.2017) STEEPING PRESS TENDER(S): SARINA Landry(ASCP) INITIAL CPT CODE(S): A; 93851, 01952 Professional services performed [place] [facility] [address] Technical services performed by [facility] at [address] [place] [address], [address] [address]. PATIENT: ECTOR MARX /AGE: 10 1930 (Age: 86) SEX: M PATIENT #: [id number] ALT CASE #: SPECIMEN COLLECTION DATE: 05/03/2017 SPECIMEN RECEIVED DATE: 05/03/[address] [facility] [address] [place] [address], [address] [place] [address] PHONE: [phone] DIRECTOR: Willian Lopez M.D. * * * END OF REPORT * * *
== END 2017-05-03 10:10 | disposition home or self-care (01) | DRG 291 ==
LOC: ICU 10:58
PROVIDERS: ADMIT Family Medicine; ATTEND Family Medicine
PROC: 0W993ZZ Drainage of Right Pleural Cavity, Percutaneous Approach (ICD-10-PCS; principal; 2017-04-30)
DX: I11.0 Hypertensive heart disease with heart failure (principal); J96.00 Acute respiratory failure, unspecified whether with hypoxia or hypercapnia; J90 Pleural effusion, not elsewhere classified; E44.0 Moderate protein-calorie malnutrition; D63.8 Anemia in other chronic diseases classified elsewhere; I48.2 Chronic atrial fibrillation; E78.00 Pure hypercholesterolemia, unspecified; E78.5 Hyperlipidemia, unspecified; I25.10 Atherosclerotic heart disease of native coronary artery without angina pectoris; I50.33 Acute on chronic diastolic (congestive) heart failure; Z80.7 Family history of other malignant neoplasms of lymphoid, hematopoietic and related tissues; Z82.61 Family history of arthritis; Z95.1 Presence of aortocoronary bypass graft; Z68.20 Body mass index [BMI] 20.0-20.9, adult
CPT/HCPCS: 36415; 71045; 71046; 71275; 76942; 80053; 80061; 81001; 82553; 82945; 83605; 83615; 83735; 83880; 84157; 84484; 85025; 85379; 87040; 87071; 87075; 87641; 88112; 88305; 89050; 93005; 93306; 94640; J0696; J1940; J1956; J3475; J7620; Q9967

== ENCOUNTER → 2017-08-04 | Outpatient (CLI) | payer OTHER ==
[~2017-08-04] MED LIST: APIX2.5T PO; FURO40TA4 PO; IOHEXOL 300 MG/ML 75 ML VIAL. IV ONE; IPRA3AMP NEB; POTA10TA10 PO
[2017-08-04 12:04] LABS: BF COLOR AMBER; BF SOURCE PLEURAL
[2017-08-04 12:05] LABS: BF CLARITY CLOUDY; BF WBC COUNT 353
[2017-08-04 12:06] LABS: BF RBC COUNT 5386
--- NOTE | 2017-08-04 12:53 | RAD ---
PQRS Compliance Statement: One or more of the following individualized dose reduction techniques were utilized for this examination: 1. Automated exposure control 2. Adjustment of the mA and/or kV according to patient size 3. Use of iterative reconstruction technique CT angiography chest with contrast 08/04/2017 INDICATION: Shortness of breath. COMPARISON: CT chest April 29, 2017 TECHNIQUE: Multiple axial CT images of the chest were obtained after the intravenous administration of nonionic contrast. Coronal and sagittal reformats are provided. Maximum intensity projection images of the thoracic vasculature are provided. FINDINGS: The thyroid gland is normal in appearance. There are no pathologically enlarged axillary, mediastinal or hilar lymph nodes. There is significant cardiomegaly with biatrial enlargement. Thoracic aorta is normal in course and caliber. Mild atherosclerotic changes are present. Three-vessel coronary artery vascular calcific effusions are present. There is adequate opacification of pulmonary arterial system. No filling defects are identified to suggest acute or chronic pulmonary emboli. There is a nodular parenchymal opacity in the right upper lobe measuring approximately 18 mm, stable from April 29, 2017. Small bilateral pleural effusions are identified with adjacent compressive atelectasis versus infiltrate. Findings have not significantly changed prior examination. There are no new or enlarging solid noncalcified pulmonary nodules. There is no pneumothorax. There is mild pulmonary vascular congestion. Lung bases are not completely included on this examination. Visualized portions of liver appear normal. No suspicious osseous lesions are identified. IMPRESSION: 1. No evidence for acute pulmonary embolism. 2. Stable cardiomegaly with biatrial enlargement. Mild pulmonary vascular congestion as may be seen in setting of congestive heart failure. 3. Small bilateral pleural effusions, right greater than left with adjacent compressive atelectasis versus infiltrate. 4. 18 mm nodular opacity along the right upper lobe abutting the pleural effusion appears stable. Attention on follow-up exams is recommended. Electronically signed by: Iris Frank MD (08/04/2017 12:50 PM) [facility]
[2017-08-04 12:54] LABS: BF MON % 94 %; BF PMN % 6 %
--- NOTE | 2017-08-04 15:08 | RAD ---
Ultrasound guided thoracentesis 08/04/2017 Clinical History: Right pleural effusion. Technique: After the risks and benefits of the procedure were explained the patient, written informed consent was obtained. Real-time scanning of the posterior aspect of the right pleural space was performed. The patient has a moderate to large sized right pleural effusion. A mansi was placed in the skin surface corresponding to the fluid. This area was prepped and draped in sterile fashion. 1% lidocaine was used as a local anesthetic. A 6 Micronesian Vzpg-T-vazyedby catheter was advanced over a trocar into the posterior right pleural space. The trocar was removed and 1060 cc of serous pleural fluid was then removed. 50 cc of the fluid was sent to the laboratory for the requested studies. Following this the catheter was removed and hemostasis achieved at the puncture site. A sterile bandage was placed on the skin puncture site. The patient tolerated the procedure well and there were no immediate complications. Impression: Technically successful ultrasound guided right thoracentesis. Electronically signed by: Francisco Glover MD (08/04/2017 3:04 PM) [facility]
--- NOTE | 2017-08-06 14:14 | PATHOLOGY ---
Note [facility] Accession Number: [id number] TESTS RESULT FLAG UNITS REF RANGE LAB Clinician Provided Cytology Information No. of containers..01 Other (Miscellaneous) Source: PLEURAL FLUID DIAGNOSIS: PLEURAL FLUID INCONCLUSIVE. MESOTHELIAL CELLS ARE PRESENT. COMMENT; FEW ATYPICAL CELLS ARE PRESENT IMMUNOPEROXIDASE STAIN NILSON-EP4 IS NEGATIVE CALRETININ STAINS FEW CELLS NOT DIAGNOSTIC. SUGGEST CLINICAL CORRELATION AND FOLLOW UP CLINICALLY INDICATED. Signed out by: 02 Brian Vincent MD, Pathologist NPI- [id number] Performed by: Candy Young, [employer] ([facility]) Gross description: 01 30ML, YELLOWISH RED, CLOUDY /LCS FLAG LEGEND: L-Low Normal,H-High Normal,LL-Alert Low,HH-Alert High <-Panic Low,>-Panic High,A-Abnormal,AA-Critical Abnormal Performed at: [facility] [address] [place] [address] Inocente Bean MD, [address] [address] Willian Lopez MD, Performed at: [address], [place], [place] [id number] MD Inocente Bean MD Phone: [phone]
== END | disposition home or self-care (01) ==
LOC: US 10:02
PROVIDERS: ATTEND Family Medicine
DX: J90 Pleural effusion, not elsewhere classified (principal); I51.7 Cardiomegaly
CPT/HCPCS: 71275; 76942; 82945; 83615; 87071; 87075; 89050; Q9967

== ENCOUNTER → 2017-09-01 | Outpatient (CLI) | payer OTHER ==
[~2017-09-01] MED LIST changes: -IOHEXOL 300 MG/ML 75 ML VIAL. IV ONE; -IPRA3AMP NEB; +IPRA3AMP29 NEB
--- NOTE | 2017-09-01 13:19 | RAD ---
Three-view left elbow dated 09/01/2017. No comparison available. CLINICAL INDICATION: Left elbow pain started this morning. FINDINGS: 3 views left elbow show moderate to severe degenerative changes of the elbow joint with prominent marginal osteophytes and subchondral cystic changes. There is mild elevation of the anterior fat pad and posterior fat pad. No definite loose body. No apparent fracture or bone destruction. IMPRESSION: 1. No apparent acute bony abnormality. 2. 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 3. Suspected elbow joint effusion. Consider reactive effusion or synovitis. Septic joint cannot be excluded. Electronically signed by: Lucio Johnson MD (09/01/2017 1:16 PM) [facility]
== END | disposition home or self-care (01) ==
LOC: DXRAD 12:27
PROVIDERS: ATTEND Nurse Practitioner Family
DX: M25.722 Osteophyte, left elbow (principal); I11.0 Hypertensive heart disease with heart failure; I50.33 Acute on chronic diastolic (congestive) heart failure; E78.5 Hyperlipidemia, unspecified; E78.00 Pure hypercholesterolemia, unspecified
CPT/HCPCS: 73080

== ENCOUNTER 2018-03-08 17:52 | Inpatient (IN) | payer OTHER ==
[~2018-03-08] VITALS: Ht 182.9 cm; Wt 74.4 kg
[2018-03-08] MEDS ORDERED: METO-239 PO (18:21)
[2018-03-08 18:25] VITALS: BP 112/66
[2018-03-08 19:02] LABS: BASO % 0 % (0-3); EOS % 0 % (0-3); HEMATOCRIT 35.2 % (39.0-53.0); HEMOGLOBIN 11.3 g/dL (13.0-17.5); LYMPH # 0.3 x10^3/uL (1.0-4.8); LYMPH % 4 % (24-48); MEAN CORPUSCULAR HEMOGLOBIN 30 pg (25-35); MEAN CORPUSCULAR HGB CONC 32 g/dL (31-37); MEAN CORPUSCULAR VOLUME 93 fL (79-100); MONO # 0.4 x10^3/uL (0.0-1.1); MONO % 5 % (0-9); NEUT # 7.1 x10^3uL (1.8-7.7); NEUT % 90 % (31-73); PLATELET COUNT 146 x10^3/uL (140-400); RED CELL DISTRIBUTION WIDTH 20.8 % (11.5-14.5); WHITE BLOOD COUNT 7.8 x10^3/uL (4.0-11.0)
[2018-03-08] MEDS ORDERED: FUROSEMIDE INJ 100 MG in IV NORMAL SALINE 100ML 90 ML IV PRN (19:15)
[2018-03-08 19:29] LABS: ALBUMIN 2.3 g/dL (3.4-5.0); ALBUMIN/GLOBULIN RATIO 0.6 (1.0-1.7); CREATININE 1.3 mg/dL (0.7-1.3); POTASSIUM 3.4 mmol/L (3.5-5.1); TOTAL BILIRUBIN 0.8 mg/dL (0.2-1.0); TOTAL PROTEIN 6.3 g/dL (6.4-8.2)
[2018-03-08 19:53] LABS: BACTERIA,URINE 0 /HPF (0-FEW); BILIRUBIN,URINE NEG (NEG); CLARITY,URINE CLEAR; COLOR,URINE YELLOW; GLUCOSE,URINE NEG (NEG); HYALINE CASTS, URINE OCC /HPF; NITRITE,URINE NEG (NEG); RBC,URINE 0 /HPF (0-2); SQUAMOUS EPITHELIAL CELL,UR OCC /LPF; UROBILINOGEN,URINE 0.2 mg/dL (0.2 mg/dL); WBC,URINE OCC /HPF (0-4)
[2018-03-08] MEDS ORDERED: IPRATRPIUM/ALBUTEROL 0.5/2.5MG 3 ML NEBU. NEB SCH ×2 (20:00→21:00)
[2018-03-08] MEDS: IPRATRPIUM/ALBUTEROL 0.5/2.5MG 3 ML NEBU. NEB SCH (20:21)
[2018-03-08 20:40] VITALS: BP 114/73
[2018-03-08 21:00] VITALS: BP 103/58
[2018-03-08] MEDS ORDERED: APIXABAN 2.5 MG TABLET PO SCH (21:00)
[2018-03-08 22:00] VITALS: BP 116/66
[2018-03-08 23:00] VITALS: BP 105/57
[2018-03-08 23:06] LABS: ANISOCYTOSIS SLIGHT; OVALOCYTES OCC; PLT ESTIMATE ADEQUATE (ADEQUATE); POLYCHROMASIA SLIGHT
[2018-03-08] MEDS ORDERED: POTASSIUM CHLORIDE 20 MEQ TABLET.ER. PO ONE (23:15)
--- NOTE | 2018-03-08 23:52 | RAD ---
Indication: Pleural effusion. Shortness of breath TECHNIQUE: 2 views of the chest COMPARISON: Chest x-ray from 05/03/2017 FINDINGS: CABG changes noted. Heart is moderately enlarged in size. Diffuse bilateral interstitial opacities are seen. Blunting of the bilateral costophrenic angles are seen, right more than left. No pneumothorax. Visualized bony thorax within normal limits. IMPRESSION: 1. Small bilateral pleural effusions, right more than left. 2. Interstitial pulmonary edema. Electronically signed by: Bishnu Abbott DO (03/08/2018 11:48 PM) [facility]
[2018-03-09] VITALS (24 sets, daily range): BP systolic 95–121; BP diastolic 47–71
[2018-03-09] MEDS: IPRATRPIUM/ALBUTEROL 0.5/2.5MG 3 ML NEBU. NEB SCH ×4 (04:48→20:14)
[2018-03-09 06:41] LABS: CALCIUM 7.6 mg/dL (8.5-10.1); CREATININE 1.1 mg/dL (0.7-1.3); POTASSIUM 3.9 mmol/L (3.5-5.1)
[2018-03-09] MEDS: METOPROLOL SUCC 24HR ER 25 MG TAB.ER.24H. PO SCH (07:34)
[2018-03-09] MEDS ORDERED: LIDOCAINE 2% PF Vial for OR 5 ML VIAL. ONE (11:00)
[2018-03-09] MEDS: POTASSIUM CHLORIDE 20 MEQ TABLET.ER. PO SCH (11:09)
[2018-03-09 11:32] LABS: BF CLARITY CLOUDY; BF COLOR RED; BF MON % 88 %; BF OTHER % 6 %; BF PMN % 6 %; BF RBC COUNT 11535; BF SOURCE THORACENTESIS; BF WBC COUNT 214
--- NOTE | 2018-03-09 17:37 | CARD ---
MR#: [id number] Date of Study: 03/09/2018 Ordering Physician: MARYSOL PATEL, Referring Physician: MARYSOL PATEL, Tech: Carmen Menjivar LUTHER APPROVED REPORT EXAM: Two-dimensional and M-mode echocardiogram with Doppler and color Doppler. Other Information Quality : Good INDICATION Dyspnea 2D DIMENSIONS RVDd3.5 (2.9-3.5cm)Left Atrium(2D)4.1 (1.6-4.0cm) IVSd1.0 (0.7-1.1cm)Aortic Root(2D)2.3 (2.0-3.7cm) LVDd3.5 (3.9-5.9cm)LVOT Diameter2.1 (1.8-2.4cm) PWd1.0 (0.7-1.1cm)LVDs2.4 (2.5-4.0cm) FS (%) 31.1 %SV29.8 ml LVEF(%)60.0 (>50%) Aortic Valve AoV Peak Darell.160.6cm/sAoV VTI28.2cm AO Peak GR.10.3mmHgLVOT Peak Darell.115.2cm/s LVOT VTI 21.31cmAO Mean GR.5mmHg ELIA (VMAX)2.83zq2HII (VTI)2.71cm2 Mitral Valve MV E Yaxdkdpr524.0cm/sMV DECEL [id number] MV A Wchdfsgf15.5cm/sE/A Ratio3.1 Tricuspid Valve TR P. Dykcswiy974wc/sRAP UOZEVKGR43kyGs TR Peak Gr.73lbHnCNAV49yxBq LEFT VENTRICLE The left ventricle is normal size. There is normal left ventricular wall thickness. The left ventricu lar systolic function is normal and the ejection fraction is within normal range. The Ejection Fracti on is 55-60%. Septal motion consistent with conduction abnormality. Transmitral Doppler flow pattern is restrictive diastolic dysfunction. RIGHT VENTRICLE The right ventricle is mildly dilated. The right ventricular systolic function is normal. ATRIA The left atrium size is normal. The right atrium is severely dilated. The interatrial septum is intac t with no evidence for an atrial septal defect or patent foramen ovale as noted on 2-D or Doppler henry ging. AORTIC VALVE The aortic valve is moderately thickened but opens well. Doppler and Color Flow revealed mild aortic regurgitation. There is no significant aortic valvular stenosis. MITRAL VALVE The mitral valve is thickened but opens well. Mitral annular calcification is mild. There is no evide nce of mitral valve prolapse. There is no mitral valve stenosis. Doppler and Color-flow revealed mild to moderate mitral regurgitation. TRICUSPID VALVE There is tricuspid valve annular dilation. Doppler and Color Flow revealed moderate to severe tricusp id regurgitation. There is moderate pulmonary hypertension. The PA pressure was estimated at 57 mmHg. There is no tricuspid valve stenosis. PULMONIC VALVE The pulmonary valve is normal in structure and function. Doppler and Color Flow revealed trace pulmon ic valvular regurgitation. There is no pulmonic valvular stenosis. GREAT VESSELS The aortic root is normal in size. The ascending aorta is not well seen. The IVC is dilated and colla pses <50% with inspiration. PERICARDIAL EFFUSION There are large pleural effusions. There is no evidence of significant pericardial effusion. Critical Notification Critical Value: No <Conclusion> The left ventricular systolic function is normal and the ejection fraction is within normal range. Th e Ejection Fraction is 55-60%. Septal motion consistent with conduction abnormality. Transmitral Doppler flow pattern is restrictive diastolic dysfunction. The right ventricle is mildly dilated. The right atrium is severely dilated. Doppler and Color-flow revealed mild to moderate mitral regurgitation. Doppler and Color Flow revealed moderate to severe tricuspid regurgitation. There is moderate pulmona ry hypertension. The PA pressure was estimated at 57 mmHg. There are large pleural effusions. Signed by : Bogdan Sanchez, Electronically Approved : 03/09/2018 17:35:06
--- NOTE | 2018-03-09 21:10 | PN ---
DATE: SUBJECTIVE: An 87-year-old gentleman who came with significant bilateral pleural effusions. He was having difficulty breathing. I disagree with the x-ray report. He does have small bilateral pleural effusions, the one on the right was fairly extensive, actually coming up to midway of the right lung. OBJECTIVE: VITAL SIGNS: Blood pressure 110/53, respiratory rate 20, pulse 90, afebrile. HEENT: The patient's head was atraumatic, normocephalic. Eyes: PERRLA without jaundice. The mouth and throat were normal. NECK: Supple, no JVD or carotid bruits. No thyromegaly. LUNGS: Diminished throughout, poor movement of air. The patient had thoracentesis this morning, sent the fluid for labs. D-dimer elevated, of course, probably from the pleural effusions. The patient had 88 white blood cells, numerous red blood cells. Cultures are pending, but he is breathing a little bit easier. He continues on IV antibiotic therapy and we will continue to monitor him accordingly on this. IMPRESSION: Significant bilateral pleural effusions, acute respiratory distress with hypoxia and hypotension. Continue in the ICU and continue with the plan as noted above. MARYSOL PATEL MD DR: INDU/nam JOB#: [id number] / [id number]
[2018-03-10] VITALS (8 sets, daily range): BP systolic 96–119; BP diastolic 55–69
[2018-03-10] MEDS: IPRATRPIUM/ALBUTEROL 0.5/2.5MG 3 ML NEBU. NEB SCH ×2 (04:54→09:12)
--- NOTE | 2018-03-10 06:11 | EKG ---
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
[2018-03-10] MEDS: POTASSIUM CHLORIDE 20 MEQ TABLET.ER. PO SCH (08:46)
[2018-03-10] MEDS: METOPROLOL SUCC 24HR ER 25 MG TAB.ER.24H. PO SCH (08:47)
--- NOTE | 2018-03-10 08:47 | RAD ---
Ultrasound guided thoracentesis 03/09/2018 Clinical History: Pleural effusions. Technique: After the risks and benefits of the procedure were explained the patient, written informed consent was obtained. Real-time scanning of the posterior aspect of both pleural spaces was performed. The patient has moderate sized bilateral pleural effusions, right greater than left A mansi was placed on the skin surface corresponding to the fluid within the posterior right pleural space. This area was prepped and draped in sterile fashion. 1% lidocaine was used as a local anesthetic. A 6 Hebrew Pvap-R-jvygcqfl catheter was advanced over a trocar into the posterior right pleural space. The trocar was removed and 860 cc of serous pleural fluid was then removed. 60 cc of the fluid was sent to the laboratory for the requested studies. Following this the catheter was removed and hemostasis achieved at the puncture site. A sterile bandage was placed on the skin puncture site. The patient tolerated the procedure well and there were no immediate complications. The patient was returned to his room in good condition. Impression: Technically successful ultrasound guided right thoracentesis. Electronically signed by: Francisco Glover MD (03/10/2018 8:42 AM) [facility]
[2018-03-10] MEDS ORDERED: FUROSEMIDE 40 MG TABLET PO SCH (09:00)
[2018-03-10 09:06] LABS: CALCIUM 7.9 mg/dL (8.5-10.1); CREATININE 1.1 mg/dL (0.7-1.3); POTASSIUM 4.2 mmol/L (3.5-5.1)
[2018-03-10] MEDS ORDERED: POTA20TA4 PO (09:55)
== END 2018-03-10 13:35 | disposition home or self-care (01) | DRG 186 ==
LOC: 1 SOUTH 17:52 → ICU 20:35
PROVIDERS: ADMIT Family Medicine; ATTEND Family Medicine
PROC: 0W993ZZ Drainage of Right Pleural Cavity, Percutaneous Approach (ICD-10-PCS; principal; 2018-03-08)
DX: J90 Pleural effusion, not elsewhere classified (principal); J96.01 Acute respiratory failure with hypoxia; I95.9 Hypotension, unspecified; I25.10 Atherosclerotic heart disease of native coronary artery without angina pectoris; Z82.49 Family history of ischemic heart disease and other diseases of the circulatory system; Z80.7 Family history of other malignant neoplasms of lymphoid, hematopoietic and related tissues
CPT/HCPCS: 32555; 36415; 71046; 76942; 80048; 80053; 81001; 82550; 82945; 83605; 83615; 83880; 84145; 84157; 84484; 85025; 85379; 85610; 85730; 87071; 87075; 87641; 89050; 93005; 93306; 94640; J7620; J2001

== ENCOUNTER 2018-05-20 12:24 | Inpatient (IN) | payer OTHER ==
[~2018-05-20] VITALS: Ht 182.9 cm; Wt 75.8 kg
[2018-05-20] VITALS (9 sets, daily range): BP systolic 99–109; BP diastolic 55–67
[~2018-05-20 12:24] MED LIST changes: +METO-239 PO; +POTA20TA4 PO
--- NOTE | 2018-05-20 13:35 | NUR ---
The patient, GEORGINA FERNANDEZ, 87 y/o, M admitted by MARYSOL PATEL MD, was given written information regarding hospital policies, unit procedures and contact persons. Valuables were checked and admission assessment performed. pt is alert and orientated, lung sounds are decreased bilat, oxygen is at 93% on 2LNC which he wears at home, blood pressure and heart rate are wnl. pt is currently in afib. pt states he is having difficulty urinating and having some swelling bilat lower extrem. pt does appear to have some 2+ pitting edema in both lower extremities. pt did urinate upon arrival approx 100mL. pt is currently down at radiology for scans, will ctm when he gets back.
[2018-05-20] MEDS ORDERED: IPRATRPIUM/ALBUTEROL 0.5/2.5MG 3 ML NEBU. NEB SCH (14:00)
[2018-05-20 14:18] LABS: BASO % 0 % (0-3); EOS % 0 % (0-3); HEMATOCRIT 31.8 % (39.0-53.0); HEMOGLOBIN 10.3 g/dL (13.0-17.5); LYMPH # 0.4 x10^3/uL (1.0-4.8); LYMPH % 4 % (24-48); MEAN CORPUSCULAR HEMOGLOBIN 31 pg (25-35); MEAN CORPUSCULAR HGB CONC 32 g/dL (31-37); MEAN CORPUSCULAR VOLUME 95 fL (79-100); MONO # 0.3 x10^3/uL (0.0-1.1); MONO % 4 % (0-9); NEUT # 7.8 x10^3uL (1.8-7.7); NEUT % 91 % (31-73); PLATELET COUNT 125 x10^3/uL (140-400); RED BLOOD COUNT 3.35 x10^6/uL (4.30-5.70); RED CELL DISTRIBUTION WIDTH 19.6 % (11.5-14.5); WHITE BLOOD COUNT 8.5 x10^3/uL (4.0-11.0)
--- NOTE | 2018-05-20 14:20 | RAD ---
Examination: CT chest without contrast HISTORY: History of shortness of breath COMPARISON: 08/04/2017 TECHNIQUE: Axial CT images of the chest were performed without contrast. Coronal and sagittal reformats are performed Exposure: One or more of the following individualized dose reduction techniques were utilized for this examination: 1. Automated exposure control 2. Adjustment of the mA and/or kV according to patient size 3. Use of iterative reconstruction technique FINDINGS: Enlarged cardiomegaly. Diffuse coronary artery calcifications identified. Moderate bilateral pleural effusions with bibasilar lung consolidation changes identified likely pneumonia or atelectasis. Mild prominent bilateral interstitial lung markings. The visualized noncontrasted liver, spleen, adrenals grossly appears unremarkable. Moderate aortic atherosclerosis. Mild degenerative changes thoracic spine. IMPRESSION: 1. Moderate bilateral pleural effusions with bibasilar lung consolidation changes likely pneumonia or atelectasis. Probable lung congestive changes. 2. Stable cardiomegaly. Electronically signed by: Natanael Parmar MD (05/20/2018 2:17 PM) [id number]
--- NOTE | 2018-05-20 14:25 | RAD ---
Chest, 2 views, 05/20/2018: HISTORY: Shortness of breath Comparison is made to a study from 03/08/2018. There has been a previous median sternotomy. There are moderate sized bilateral pleural effusions partially obscuring the cardiac margins. The amount of pleural fluid on the left has increased slightly. The right pleural effusion is similar to that seen on 05/20/2018. The heart appears to be enlarged. There is moderate underlying bibasilar atelectasis. No definite upper lung infiltrates are seen. IMPRESSION: Ongoing or recurrent moderate sized bilateral pleural effusions with moderate underlying bibasilar atelectasis. The pleural fluid has increased slightly in volume on the left since 02/26/2018. Electronically signed by: Trae Luz MD (05/20/2018 2:22 PM) [facility]
[2018-05-20 14:28] LABS: BACTERIA,URINE 0 /HPF (0-FEW); BILIRUBIN,URINE NEG (NEG); CLARITY,URINE CLEAR; COLOR,URINE YELLOW; GLUCOSE,URINE NEG (NEG); NITRITE,URINE NEG (NEG); RBC,URINE 0 /HPF (0-2); UROBILINOGEN,URINE 1 mg/dL (0.2 mg/dL); WBC,URINE 0 /HPF (0-4)
[2018-05-20 14:29] LABS: HYALINE CASTS, URINE FEW /HPF; SQUAMOUS EPITHELIAL CELL,UR OCC /LPF
[2018-05-20 14:39] LABS: ALBUMIN 2.2 g/dL (3.4-5.0); ALBUMIN/GLOBULIN RATIO 0.6 (1.0-1.7); CALCIUM 8.3 mg/dL (8.5-10.1); CREATININE 1.2 mg/dL (0.7-1.3); MAGNESIUM 1.7 mg/dL (1.8-2.4); POTASSIUM 3.3 mmol/L (3.5-5.1); TOTAL BILIRUBIN 1.1 mg/dL (0.2-1.0); TOTAL PROTEIN 6.1 g/dL (6.4-8.2)
[2018-05-20] MEDS: POTASSIUM CHLORIDE 20 MEQ TABLET.ER. PO SCH ×2 (15:46→20:13)
[2018-05-20] MEDS: MAGNESIUM OXIDE 400 MG TABLET PO SCH ×2 (15:46→20:14)
[2018-05-20] MEDS: HEPARIN for SUB-Q USE 5,000 UNIT/ML VIAL. SQ SCH ×2 (15:47→21:31)
[2018-05-20] MEDS ORDERED: PIP/TAZO PER PHARMACY MC PRN (16:30)
[2018-05-20] MEDS ORDERED: VANCOMYCIN 2 GM in IV NORMAL SALINE 500ML 500 ML IV ONE (17:00)
[2018-05-20] MEDS: VANCOMYCIN PER PHARMACY MC PRN (17:10)
--- NOTE | 2018-05-20 17:10 | NUR ---
Pharmacy Vancomycin Dosing Note S:Consulted to monitor and dose vancomycin started 05/20/18. O:GEORGINA FERNANDEZ is a 87 year old M with Pneumonia Height: 6 feet, 0 inches Weight: 77.842128 kg [place] Body Weight: 77.60 Adjusted Body Weight: 77.48 Dosing Weight: Actual Other Antibiotics: ZOSYN LABS: Last BUN: 36 Last Creatinine: 1.2 Creatinine Clearance: 45.6 Last WBC: 8.5 Vancomycin Dosing: Loading Dose: 2000 mg x1 Dosing Weight: Actual Target Trough: 15-20 A: Initial dosing based on height, actual weight, renal function, and indication. P: 1. Give Vancomycin 2000mg IV initially, then Vancomycin 1250 mg IV q24h 2. Follow up Trough level on 05/22/18 at 1630 3. Pharmacy will continue to monitor, follow and adjust therapy as needed. TAMI WOODARD RPH 05/20/18 [id number]
--- NOTE | 2018-05-20 19:09 | EKG ---
[address] [address] Test Date: 2018-05-20 Test Time: 13:55:15 Pat Name: GEORGINA FERNANDEZ Department: Room: [facility] 1 Gender: M Associate Merchant: : [id number] Requested By: MARYSOL PATEL Order Number: [id number] Reading MD: Bogdan Sanchez MD Measurements Intervals [place] Rate: 75 P: [place]: QRS: 114 QRSD: 86 T: 216 QT: 312 QTc: 351 Interpretive Statements ATRIAL FIBRILLATION WITH CONTROLLED VENTRICULAR RESPONSE CONSISTENT WITH ANTEROSEPTAL INFARCT PROBABLY OLD NON-SPECIFIC ST/T CHANGES Electronically Signed On 05-23-2018 14:17:57 CDT by Bogdan Sanchez MD
[2018-05-20] MEDS: FUROSEMIDE 40 MG/4 ML VIAL IVP SCH (20:13)
[2018-05-20] MEDS: PIPERACILLIN/TAZOBACTAM 4.5 GM in IV NORMAL SALINE 50ML 50 ML IV SCH (20:14)
[2018-05-20] MEDS: LACTOBACILLUS RHAMNOSUS GG 1 CAPSULE. PO SCH (20:14)
[2018-05-20] MEDS: IPRATRPIUM/ALBUTEROL 0.5/2.5MG 3 ML NEBU. NEB SCH (20:59)
[2018-05-20] MEDS ORDERED: HEPARIN for SUB-Q USE 5,000 UNIT/ML VIAL. SQ SCH (22:00)
[2018-05-21] VITALS (15 sets, daily range): BP systolic 92–109; BP diastolic 51–63
[2018-05-21] MEDS: PIPERACILLIN/TAZOBACTAM 4.5 GM in IV NORMAL SALINE 50ML 50 ML IV SCH ×4 (00:03→18:37)
[2018-05-21] MEDS: IPRATRPIUM/ALBUTEROL 0.5/2.5MG 3 ML NEBU. NEB SCH ×4 (05:35→20:42)
[2018-05-21] MEDS: HEPARIN for SUB-Q USE 5,000 UNIT/ML VIAL. SQ SCH ×3 (06:26→20:32)
[2018-05-21 07:21] LABS: BASO % 0 % (0-3); EOS % 0 % (0-3); HEMATOCRIT 29.5 % (39.0-53.0); HEMOGLOBIN 9.5 g/dL (13.0-17.5); LYMPH # 0.4 x10^3/uL (1.0-4.8); LYMPH % 6 % (24-48); MEAN CORPUSCULAR HEMOGLOBIN 30 pg (25-35); MEAN CORPUSCULAR HGB CONC 32 g/dL (31-37); MEAN CORPUSCULAR VOLUME 95 fL (79-100); MONO # 0.3 x10^3/uL (0.0-1.1); MONO % 5 % (0-9); NEUT # 5.8 x10^3uL (1.8-7.7); NEUT % 89 % (31-73); PLATELET COUNT 108 x10^3/uL (140-400); RED BLOOD COUNT 3.12 x10^6/uL (4.30-5.70); RED CELL DISTRIBUTION WIDTH 19.5 % (11.5-14.5); WHITE BLOOD COUNT 6.5 x10^3/uL (4.0-11.0)
[2018-05-21 07:33] LABS: CALCIUM 8.1 mg/dL (8.5-10.1); CREATININE 1.3 mg/dL (0.7-1.3); POTASSIUM 3.9 mmol/L (3.5-5.1)
[2018-05-21] MEDS: LACTOBACILLUS RHAMNOSUS GG 1 CAPSULE. PO SCH ×2 (09:51→20:30)
[2018-05-21] MEDS: MAGNESIUM OXIDE 400 MG TABLET PO SCH ×2 (09:51→20:31)
[2018-05-21] MEDS: POTASSIUM CHLORIDE 20 MEQ TABLET.ER. PO SCH ×2 (09:51→20:31)
[2018-05-21] MEDS: FUROSEMIDE 40 MG/4 ML VIAL IVP SCH (09:51)
[2018-05-21] MEDS: METOPROLOL SUCC 24HR ER 25 MG TAB.ER.24H. PO SCH (09:52)
[2018-05-21] MEDS ORDERED: POTASSIUM CHLORIDE 20 MEQ TABLET.ER. PO SCH (10:00)
--- NOTE | 2018-05-21 13:13 | HP ---
ADMIT DATE: 05/20/2018 HISTORY OF PRESENT ILLNESS: The patient is an 87-year-old male patient who was admitted directly from Dr. uBchanan's office where he presented with worsening shortness of breath, generalized weakness, cough with scanty sputum, marked swelling of both lower extremities and weight gain. He apparently has had a chest x-ray, which showed that he has marked bilateral pleural effusion with moderate underlying bibasilar atelectasis. The pleural fluid has increased slightly in volume on the left since 02/26/2018, has had a CT scan of the chest, which showed moderate bilateral pleural effusion, bibasilar lung consolidation changes identified, likely pneumonia or atelectasis, mild prominent bilateral interstitial lung markings. The visualized noncontrasted liver, spleen, adrenals grossly appeared unremarkable. The patient was admitted with acute on chronic diastolic congestive heart failure and his most recent echocardiogram on 03/09/2018 showed that the patient's left ventricular systolic function is normal and ejection fraction is within normal range. The ejection fraction was 55-60%. His septal motion consistent with conduction abnormalities. His transmitral Doppler flow pattern has restrictive diastolic dysfunction, his right ventricle is mildly dilated, his right atrium is severely dilated, has moderate mitral regurgitation, moderate to severe tricuspid regurgitation, moderate pulmonary hypertension with pulmonary artery pressure was estimated at 57 mmHg. PAST MEDICAL HISTORY: Significant for coronary artery disease, status post coronary artery bypass graft x 4. He has chronic diastolic congestive heart failure, benign prostatic hypertrophy. He is also known to have chronic atrial fibrillation, hyperlipidemia, hypertension, bradycardia. PAST SURGICAL HISTORY: Significant for: 1. Coronary artery bypass graft surgery. 2. Back surgery. 3. Hernia repair. 4. Transurethral resection of the prostate x 2. FAMILY HISTORY: Significant for one brother of Hodgkin disease at the age of 56. His father of electrocution at the age of 56. His mother had severe rheumatoid arthritis and at the age of 70, had another brother of myocardial infarction at the age of 56. SOCIAL HISTORY: He is , currently lives alone. 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 He has 7 children, 2 of them were twins and one of them because of non-Hodgkin lymphoma. He never smoked. Drinks alcohol occasionally. ALLERGIES: He has no known drug allergies. REVIEW OF SYSTEMS: The patient denied any blurring of vision, cataract, glaucoma or macular degeneration. Denied any earache, tinnitus or sensorineural deafness. Denied any nosebleeds, stuffy nose or postnasal drip. Denied any sore throat, sore tongue, toothache, hoarseness of voice, difficulty swallowing. Denied any nausea, vomiting, diarrhea or constipation. Denied any hematemesis, melena or hematochezia. Denied any dysuria, frequency or hematuria. Did complain of hesitancy and nocturia. Denied any chest pain. Did complain of shortness of breath, orthopnea, paroxysmal nocturnal dyspnea. He did complain of cough with scanty sputum. Denied any chills, rigors or fever. Denied any dizziness, lightheadedness, or vertigo. PHYSICAL EXAMINATION: GENERAL: On examining him on arrival to the hospital, the patient was tachypneic, pail, cachectic, but no jaundice or cyanosis. No lymphadenopathy, no thyromegaly. No jugular venous distention, but marked bilateral lower limb edema and generalized anasarca. VITAL SIGNS: His heart rate was 76, blood pressure was 101/65, temperature was 97, respiratory rate was 22 and oxygen saturation was 93% on 3 liters of oxygen. HEAD, EYES, EARS, NOSE AND THROAT: Normocephalic, atraumatic. NECK: Supple. HEART: Showed normal first and second heart sounds. No gallop, rub or murmur. CHEST: Shows central trachea, equal bilateral expansion, air entry, vesicular sounds with dull percussion noted and absent breath sounds posteriorly. ABDOMEN: Scaphoid, soft, nontender. No guarding or rigidity. No organomegaly. All hernial orifices intact. Bowel sounds normal. NEUROLOGIC: He is awake, alert, responding appropriately. Cranial nerves intact. EXTREMITIES: He moves extremities without difficulty. Examination of the extremities showed no clubbing, cyanosis, but marked bilateral lower extremity edema. LABORATORY DATA: On admission showed a white cell count of 8500, hemoglobin 10, hematocrit 31, MCV 95, and a platelet count of 125,000. Serum sodium was 142, potassium 3.3, chloride 101, bicarbonate 40, anion gap of 1, BUN 36, creatinine 1.2, estimated GFR was 57 mL per minute. His glucose 126, calcium was 8.3, magnesium was 1.7. Total bilirubin, AST, ALT, alkaline phosphatase were normal. CK was only 28. First set of cardiac enzymes showed troponin to be less than 0.017. His beta-natriuretic peptide was 6948. Total protein was 6.1 and albumin was 2.2. His serum lipase was 164. His D-dimer was high at 2.4 mg/dL. His urinalysis showed the urine was yellow, clear with a pH of 5, specific gravity of 1.015. There was a trace of protein. The urine was negative for glucose, ketones, blood, nitrite and leukocyte esterase. There was 0 rbc's, 0 wbc's, and there were no bacteria. His chest x-ray showed that there has been a previous median sternotomy. There are moderate sized bilateral pleural effusion, partially obscuring the cardiac margin. The amount of pleural fluid in the left has increased slightly. The right pleural effusion is similar in that seen on 05/20/2018. The heart appears to be enlarged. There is moderate underlying bibasilar atelectasis. No definite upper lung infiltrate is seen. His CT scan of the chest without contrast showed that the patient has cardiomegaly with diffuse coronary artery calcification identified. Moderate bilateral pleural effusion with bibasilar lung consolidation changes identified like pneumonia or atelectasis, mild prominent bilateral interstitial lung markings. The visualized noncontrasted liver, spleen, adrenals grossly appeared unremarkable. He has moderate aortic atherosclerosis and mild degenerative changes of thoracic spine. ASSESSMENT AND PLAN: The patient was admitted with acute on chronic diastolic congestive heart failure. He also has marked bilateral lower extremity swelling. We continued with IV Lasix, heparin for DVT prophylaxis, his potassium was borderline. He was started on potassium supplement and will diurese him slowly. I will consult the windshield wiper repairer and decide on further management accordingly. ALVARO BURT MD DR: KRYSTINA/nam JOB#: [id number] / [id number]
--- NOTE | 2018-05-21 13:29 | PN ---
DATE: 05/21/2018 SUBJECTIVE: The patient is resting, slightly propped up in bed, no apparent distress. Awake, alert. On questioning him, he stated that he is feeling slightly better than yesterday and slept very well overnight. PHYSICAL EXAMINATION: GENERAL: When I examined him, he looked pale, cachectic, but no jaundice, cyanosis or thyromegaly. No jugular venous distention. No limb edema. VITAL SIGNS: His heart rate was 72, blood pressure was 94/58, temperature was 97.8, respiratory rate was 20, and oxygen saturation was 96% on 2 liters of oxygen. HEAD, EYES, EARS, NOSE AND THROAT: Showed normocephalic, atraumatic. NECK: Supple. HEART: Showed normal first and second heart sounds. No gallop, rub or murmur. CHEST: Clear to auscultation. No crepitation or rhonchi. He has a dull percussion noted and absent breath sounds posteriorly in both sides. ABDOMEN: Scaphoid, soft, nontender. NEUROLOGIC: He was awake, alert, responding appropriately. Extraocular movements intact. He moves extremities without difficulty. His intake over the last 24 hours was 690, output was 1100. LABORATORY DATA: As of this morning, his white cell count is down 6500, hemoglobin 9.5, hematocrit 29.5, MCV 95, and platelet count of 108,000. His chemistry showed a serum sodium 143, potassium 3.9, chloride 102, bicarbonate 39, anion gap of 2, BUN 33, creatinine 1.3, estimated GFR was 52 mL per minute. Glucose was 94, calcium was 8.1, magnesium was 1.7. Urinalysis was unremarkable and nasal screen for MRSA/PCR was negative. ASSESSMENT: 1. Acute on chronic diastolic congestive heart failure. 2. Chronic atrial fibrillation, rate controlled. 3. Coronary artery disease, status post coronary artery bypass graft. 4. Bilateral pleural effusion. PLAN: To continue with IV Lasix. Continue with IV antibiotic for possible pneumonia. I will consult the radiologist Wednesday to consider a thoracentesis and livestock showman to assist with the management. ALVARO BURT MD DR: KRYSTINA/nam JOB#: [id number] / [id number]
[2018-05-21] MEDS: VANCOMYCIN 1.25 GM in IV NORMAL SALINE 250ML 250 ML IV SCH (17:00)
[2018-05-21] MEDS ORDERED: NICOTINE 21MG PATCH. TD SCH (18:30)
[2018-05-22] VITALS (24 sets, daily range): BP systolic 15–111; BP diastolic 53–89
[2018-05-22] MEDS: PIPERACILLIN/TAZOBACTAM 4.5 GM in IV NORMAL SALINE 50ML 50 ML IV SCH ×4 (02:30→18:24)
[2018-05-22] MEDS: IPRATRPIUM/ALBUTEROL 0.5/2.5MG 3 ML NEBU. NEB SCH ×4 (05:41→20:07)
[2018-05-22] MEDS: HEPARIN for SUB-Q USE 5,000 UNIT/ML VIAL. SQ SCH ×3 (06:16→20:43)
[2018-05-22] MEDS: METOPROLOL SUCC 24HR ER 25 MG TAB.ER.24H. PO SCH (09:00)
[2018-05-22] MEDS: LACTOBACILLUS RHAMNOSUS GG 1 CAPSULE. PO SCH ×2 (09:01→20:44)
[2018-05-22] MEDS: MAGNESIUM OXIDE 400 MG TABLET PO SCH ×2 (09:01→20:44)
[2018-05-22] MEDS: FUROSEMIDE 40 MG/4 ML VIAL IVP SCH (09:02)
[2018-05-22] MEDS: POTASSIUM CHLORIDE 20 MEQ TABLET.ER. PO SCH ×2 (09:02→20:44)
--- NOTE | 2018-05-22 09:51 | PDOC2 ---
CONSULT Date of Admission DATE: 05/22/18 TIME: 09:51 Reason for Consult: Congestive heart failure Referring Physician: Dr. Michel Chief Complaint Dyspnea Source: Chart review, Patient History of Present Illness 87-year-old male initially presented to his PCP, Dr. Buchanan's office with progressive shortness of breath, cough and edema. He was diagnosed with acute on chronic diastolic heart failure and moderate bilateral pleural effusions and admitted for further management. He denied any chest pain, palpitations or syncope. Past Medical History Coronary artery disease s/p coronary artery bypass surgery Permanent atrial fibrillation Chronic diastolic heart failure Benign prostatic hypertrophy Hypertension Hyperlipidemia Past Surgical History Coronary artery bypass surgery Back surgery Hernia repair TURP Family History Hodgkin disease, hypertension, coronary artery disease Social History Patient admitted to occasional alcohol intake but denied any smoking or drug abuse Current Medications Current Medications Albuterol/ Ipratropium (Duoneb) 3 ml TID NEB Last administered on 05/20/18at 16: 01; Start 05/20/18 at 14:00; Stop 05/20/18 at 16:27; Status DC Metoprolol Succinate (Toprol Xl) 25 mg DAILY PO Last administered on 05/21/18at 09:52; Start 05/21/18 at 09:00 Potassium Chloride (Klor-Con) 20 meq DAILY10 PO ; Start 05/21/18 at 10:00; Stop 05/21/18 at 10:00; Status DC Heparin Sodium (Porcine) (Heparin Sodium) 5,000 unit Q8HRS SQ Last administered on 05/22/18at 06:16; Start 05/20/18 at 15:00 Magnesium Oxide (Magnesium Oxide) 400 mg BID PO Last administered on 05/22/18at 09:01; Start 05/20/18 at 15:00 Potassium Chloride (Klor-Con) 40 meq BID PO Last administered on 05/22/18at 09: 02; Start 05/20/18 at 15:00 Vancomycin HCl (Vanco Per Pharmacy) 1 each PRN DAILY PRN MC SEE COMMENTS Last administered on 05/20/18at 17:10; Start 05/20/18 at 16:30 Piperacillin Sod/ Tazobactam Sod (Zosyn Per Pharmacy) 1 each PRN DAILY PRN MC SEE COMMENTS; Start 05/20/18 at 16:30 Albuterol/ Ipratropium (Duoneb) 3 ml RTQID NEB Last administered on 05/22/18at 05:41; Start 05/20/18 at 20:00 Vancomycin HCl 2 gm/Sodium Chloride 500 ml @ 250 mls/hr 1X ONCE IV Last administered on 05/20/18at 17:51; Start 05/20/18 at 17:00; Stop 05/20/18 at 18:59 ; Status DC Piperacillin Sod/ Tazobactam Sod 4.5 gm/Sodium Chloride 50 ml @ 100 mls/hr Q6HRS IV Last administered on 05/22/18at 07:26; Start 05/20/18 at 18:00 Vancomycin HCl 1.25 gm/Sodium Chloride 250 ml @ 167 mls/hr Q24H IV Last administered on 05/21/18at 17:00; Start 05/21/18 at 17:00 Vancomycin HCl (Vancomycin Trough Level) 1 each 1X ONCE MC ; Start 05/22/18 at 16:30; Stop 05/22/18 at 16:31 Lactobacillus Rhamnosus (Culturelle) 1 cap BID PO Last administered on at 09:01; Start 05/20/18 at 21:00 Heparin Sodium (Porcine) (Heparin Sodium) 5,000 unit Q8HRS SQ ; Start 05/20/18 at 22:00; Stop 05/20/18 at 22:00; Status DC Furosemide (Lasix) 40 mg DAILY IVP Last administered on 05/22/18at 09:02; Start 05/20/18 at 19:30 Nicotine (Nicoderm Cq 21mg) 1 patch DAILY TD ; Start 05/21/18 at 18:30; Stop at 18:30; Status DC Active Scripts Active Klor-Con M20 (Potassium Chloride) 20 Meq Tab.er.prt 20 Meq PO DAILY10 30 Days Duoneb 0.5-3(2.5) Mg/3 Ml (Albuterol/Ipratropium) 3 Ml Ampul.neb 3 Ml NEB TID Reported Metoprolol Succinate ( Xl ) (Metoprolol Succinate) 25 Mg Tab.er.24h 1 Tab PO DAILY LAST DOSE GIVEN: 03/10/18 0800 Furosemide 40 Mg Tablet 40 Mg PO DAILY LAST DOSE GIVEN: 03/10/18 0800 Allergies: Coded Allergies: No Known Drug Allergies (Unverified , 04/29/17) General: YES: Fatigue PSYCHOLOGICAL ROS: No: Hallucinations Eyes: No: Loss of vision HEENT: No: Epistaxis Respiratory: YES: Cough, Shortness of breath Cardiovascular: No: Chest Pain Gastrointestinal: No: Vomiting, Diarrhea Neurological: No: Seizures Skin: No: Rash General: No acute distress HEENT: Atraumatic Lungs: Other (bilateral decreased air entry in the bases) Heart: Other (heart rate is irregular) Abdomen: Soft, No tenderness Extremities: Other (1-2+ pitting pedal edema bilaterally) Psych/Mental Status: Mood NL VITALS Vital Signs Date Time Temp Pulse Resp B/P (MAP) Pulse Ox O2 Delivery O2 Flow Rate FiO2 05/22/18 08:55 77 22 93/60 (71) 93 Nasal Cannula 2.0 05/22/18 08:00 97.9 Labs Laboratory Tests Test 05/20/18 13:40 05/20/18 14:15 05/21/18 07:02 White Blood Count 8.5 x10^3/uL (4.0-11.0) 6.5 x10^3/uL (4.0-11.0) Red Blood Count 3.35 x10^6/uL (4.30-5.70) 3.12 x10^6/uL (4.30-5.70) Hemoglobin 10.3 g/dL (13.0-17.5) 9.5 g/dL (13.0-17.5) Hematocrit 31.8 % (39.0-53.0) 29.5 % (39.0-53.0) Mean Corpuscular Volume 95 fL (79-100) 95 fL (79-100) Mean Corpuscular Hemoglobin 31 pg (25-35) 30 pg (25-35) Mean Corpuscular Hemoglobin Concent 32 g/dL (31-37) 32 g/dL (31-37) Red Cell Distribution Width 19.6 % (11.5-14.5) 19.5 % (11.5-14.5) Platelet Count 125 x10^3/uL (140-400) 108 x10^3/uL (140-400) Neutrophils (%) (Auto) 91 % (31-73) 89 % (31-73) Lymphocytes (%) (Auto) 4 % (24-48) 6 % (24-48) Monocytes (%) (Auto) 4 % (0-9) 5 % (0-9) Eosinophils (%) (Auto) 0 % (0-3) 0 % (0-3) Basophils (%) (Auto) 0 % (0-3) 0 % (0-3) Neutrophils # (Auto) 7.8 x10^3uL (1.8-7.7) 5.8 x10^3uL (1.8-7.7) Lymphocytes # (Auto) 0.4 x10^3/uL (1.0-4.8) 0.4 x10^3/uL (1.0-4.8) Monocytes # (Auto) 0.3 x10^3/uL (0.0-1.1) 0.3 x10^3/uL (0.0-1.1) Eosinophils # (Auto) 0.0 x10^3/uL (0.0-0.7) 0.0 x10^3/uL (0.0-0.7) Basophils # (Auto) 0.0 x10^3/uL (0.0-0.2) 0.0 x10^3/uL (0.0-0.2) Urine Collection Type Unknown Urine Color Yellow Urine Clarity Clear Urine pH 5.0 Urine Specific Mayer 1.015 Urine Protein Trace (NEG-TRACE) Urine Glucose (UA) Neg mg/dL (NEG) Urine Ketones (Stick) Neg mg/dL (NEG) Urine Blood Neg (NEG) Urine Nitrite Neg (NEG) Urine Bilirubin Neg (NEG) Urine Urobilinogen Dipstick 1 mg/dL (0.2 mg/dL) Urine Leukocyte Esterase Neg (NEG) Urine RBC 0 /HPF (0-2) Urine WBC 0 /HPF (0-4) Urine Squamous Epithelial Cells Occ /LPF Urine Bacteria 0 /HPF (0-FEW) Urine Hyaline Casts Few /HPF Urine Mucus Mod /LPF Nasal Screen MRSA (PCR) Negative (Negative) Sodium Level 142 mmol/L (136-145) 143 mmol/L (136-145) Potassium Level 3.3 mmol/L (3.5-5.1) 3.9 mmol/L (3.5-5.1) Chloride Level 101 mmol/L (98-107) 102 mmol/L (98-107) Carbon Dioxide Level 40 mmol/L (21-32) 39 mmol/L (21-32) Anion Gap 1 (6-14) 2 (6-14) Blood Urea Nitrogen 36 mg/dL (8-26) 33 mg/dL (8-26) Creatinine 1.2 mg/dL (0.7-1.3) 1.3 mg/dL (0.7-1.3) Estimated GFR (Cockcroft-Gault) 57.0 52.0 BUN/Creatinine Ratio 30 (6-20) Glucose Level 126 mg/dL (70-99) 94 mg/dL (70-99) Calcium Level 8.3 mg/dL (8.5-10.1) 8.1 mg/dL (8.5-10.1) Magnesium Level 1.7 mg/dL (1.8-2.4) 1.7 mg/dL (1.8-2.4) Total Bilirubin 1.1 mg/dL (0.2-1.0) Aspartate Amino Transf (AST/SGOT) 23 U/L (15-37) Alanine Aminotransferase (ALT/SGPT) 11 U/L (16-63) Alkaline Phosphatase 80 U/L (46-116) Creatine Kinase 28 U/L (39-308) Troponin I Quantitative < 0.017 ng/mL (0-0.055) GG-Vnw-O-Type Natriuretic Peptide 6948 pg/mL (0-449) Total Protein 6.1 g/dL (6.4-8.2) Albumin 2.2 g/dL (3.4-5.0) Albumin/Globulin Ratio 0.6 (1.0-1.7) Thyroid Stimulating Hormone (TSH) 1.363 uIU/mL (0.358-3.740) D-Dimer (Maricruz) 2.40 mg/L (0.00-0.50) Lipase 164 U/L (73-393) Procalcitonin < 0.10 ng/mL (0.00-0.10) Assessment/Plan 1. Acute on chronic diastolic heart failure: Recent 2-D echocardiogram 03/09/18 showed LVEF 55-60%, restrictive diastolic dysfunction, moderate to severe tricuspid regurgitation and moderate pulmonary hypertension. Continue diuresis with Lasix. 2. Bilateral pleural effusions: Recurrent. Consider thoracentesis. 3. Coronary artery disease s/p coronary artery bypass surgery, clinically stable and chest pain-free. MPI 2016 did not show any significant ischemia. He usually follows with [facility] cardiology. Continue current secondary prevention measures. 4. Permanent atrial fibrillation: Heart rate well-controlled. He is not on any long-term anticoagulation probably since he is a poor candidate - defer to primary cloud engagement partner. 5. Possible pneumonia: On intravenous antibiotics 6. Hypertension: Controlled Thank you for your consultation DOMENICO PHILLIPS MD May 22, 2018 09:51
[2018-05-22] MEDS ORDERED: LITH300T30 PO (11:38)
--- NOTE | 2018-05-22 13:43 | NUR ---
Bladder scanned pt, bladder shows 0 urine in bladder.
[2018-05-22 16:59] LABS: VANC TR 15.2 mcg/mL (10.0-20.0)
[2018-05-22] MEDS: VANCOMYCIN 1.25 GM in IV NORMAL SALINE 250ML 250 ML IV SCH (17:13)
[2018-05-22] MEDS: VANCOMYCIN PER PHARMACY MC PRN (17:14)
--- NOTE | 2018-05-22 17:15 | NUR ---
Pharmacy Vancomycin Dosing Note S:Consulted to monitor and dose vancomycin started 05/20/18. O:GEORGINA FERNANDEZ is a 87 year old M with Pneumonia, . Height: 6 feet, 0 inches Weight: 75.138614 kg [place] Body Weight: 77.60 Adjusted Body Weight: 76.88 Dosing Weight: Actual Other Antibiotics: ZOSYN LABS: Last BUN: 33 Last Creatinine: 1.2 Creatinine Clearance: 41.4 Last WBC: 6.0 Last Procalcitonin: Tmax (past 24 hours): Microbiology: I/O: Drug Levels: Last Trough level: 15.2 on 05/22/18 at 1635 Last dose given 05/21/18 at 1700 Vancomycin Dosing: Loading Dose: 2000 mg x1 Dosing Weight: Actual Target Trough: 15-20 A: Based on: Physician request for pharmacy to dose P: 1. Continue Vancomycin 1250 mg IV q24h 2. Follow up Trough level on 05/24/18 at 1630 3. Pharmacy will continue to monitor, follow and adjust therapy as needed. MOHINDER KANG, 05/22/18 [id number]
--- NOTE | 2018-05-22 18:09 | PN ---
DATE: 05/22/2018 SUBJECTIVE: The patient is resting slightly propped up in bed, slightly tachypneic. He denied any chest pain and had a good night sleep according to him. PHYSICAL EXAMINATION: GENERAL: When I examined him, he looked pale, no jaundice, cyanosis, or thyromegaly. No jugular venous distention, generalized anasarca. VITAL SIGNS: His heart rate was 82, blood pressure was 107/65, temperature was 97.9, respiratory rate was 22 and oxygen saturation was 94% on 2 liters of oxygen. HEAD, EYES, EARS, NOSE AND THROAT: Showed normocephalic, atraumatic. NECK: Supple. HEART: Showed normal first and second heart sounds. No gallop, rub or murmur. CHEST: Shows central trachea, equally reduced expansion, reduced air entry, vesicular sounds with dull percussion noted and absent breath sounds bilaterally posteriorly. I could not appreciate any crepitation or rhonchi. ABDOMEN: Slightly distended, soft, nontender. No guarding or rigidity. No organomegaly. All hernial orifices intact. Bowel sounds normal. NEUROLOGIC: He was awake, alert, responding appropriately. All cranial nerves intact. He moves extremities without difficulty. EXTREMITIES: Examination of the extremities showed no clubbing, but he has peripheral cyanosis as well as generalized anasarca. His intake over the last 24 hours was 1690, output was 1100. LABORATORY DATA: As of yesterday, his white cell count was 6500, hemoglobin 9.5, hematocrit 29.5, MCV 95, and platelet count of 108,000. His chemistry showed a serum sodium 143, potassium 3.9, chloride 102, bicarbonate 39, anion gap of 2, BUN 33, creatinine 1.3, estimated GFR was 52 mL per minute. His glucose was 94, calcium was 8.1. ASSESSMENT: 1. Acute on chronic diastolic congestive heart failure. 2. Chronic atrial fibrillation, rate controlled. 3. Coronary artery disease, status post coronary artery bypass graft surgery. He is chest pain free. 4. Bilateral pleural effusion. 5. Community-acquired pneumonia. PLAN: To continue the IV Lasix. Continue IV antibiotic for possible pneumonia. Continue with DVT prophylaxis. Given the size of the pleural effusion, he will probably need thoracentesis. We will consult the radiologist tomorrow for thoracentesis. ALVARO BURT MD DR: Darryn JOB#: [id number] / [id number]
[2018-05-22] MEDS ORDERED: LITHIUM CARBONATE PO SCH (21:00)
[2018-05-23] VITALS (17 sets, daily range): BP systolic 86–118; BP diastolic 52–80
[2018-05-23] MEDS: HEPARIN for SUB-Q USE 5,000 UNIT/ML VIAL. SQ SCH ×2 (00:17→14:00)
[2018-05-23] MEDS: PIPERACILLIN/TAZOBACTAM 4.5 GM in IV NORMAL SALINE 50ML 50 ML IV SCH ×3 (00:19→12:00)
[2018-05-23] MEDS: IPRATRPIUM/ALBUTEROL 0.5/2.5MG 3 ML NEBU. NEB SCH ×2 (04:57→12:00)
[2018-05-23 07:03] LABS: BASO % 1 % (0-3); EOS % 1 % (0-3); HEMATOCRIT 29.5 % (39.0-53.0); HEMOGLOBIN 9.4 g/dL (13.0-17.5); LYMPH # 0.4 x10^3/uL (1.0-4.8); LYMPH % 7 % (24-48); MEAN CORPUSCULAR HEMOGLOBIN 30 pg (25-35); MEAN CORPUSCULAR HGB CONC 32 g/dL (31-37); MEAN CORPUSCULAR VOLUME 95 fL (79-100); MONO # 0.4 x10^3/uL (0.0-1.1); MONO % 7 % (0-9); NEUT # 4.8 x10^3uL (1.8-7.7); NEUT % 85 % (31-73); PLATELET COUNT 93 x10^3/uL (140-400); RED BLOOD COUNT 3.11 x10^6/uL (4.30-5.70); WHITE BLOOD COUNT 5.6 x10^3/uL (4.0-11.0)
[2018-05-23 07:14] LABS: CALCIUM 8.4 mg/dL (8.5-10.1); CREATININE 1.4 mg/dL (0.7-1.3); GFR 47.7; MAGNESIUM 2.1 mg/dL (1.8-2.4); POTASSIUM 4.7 mmol/L (3.5-5.1)
[2018-05-23] MEDS: POTASSIUM CHLORIDE 20 MEQ TABLET.ER. PO SCH (08:30)
--- NOTE | 2018-05-23 08:31 | NUR ---
SB Castillo, here this morning to speak with patient in regards to plan of care. Patient requests to be a DNR and plan [facility]. Plan is to go back home with hospice services. Radiology called nurse at this time, states that thoracentesis may be done late this afternoon or tomorrow around 10am. Dr. Michel aware of change in status. Patient resting in bed comfortably at this time with friend at bedside.
[2018-05-23] MEDS: MAGNESIUM OXIDE 400 MG TABLET PO SCH ×2 (08:39→08:59)
[2018-05-23] MEDS: LACTOBACILLUS RHAMNOSUS GG 1 CAPSULE. PO SCH ×2 (08:39→08:59)
[2018-05-23] MEDS: FUROSEMIDE 40 MG/4 ML VIAL IVP SCH (08:39)
[2018-05-23] MEDS: METOPROLOL SUCC 24HR ER 25 MG TAB.ER.24H. PO SCH (08:40)
--- NOTE | 2018-05-23 11:00 | NUR ---
Thoracentesis timed out at 11:00. Radiologist arrived from [facility] to complete a right side thoracenesis at bedside. Patient sat on side of bed with staff at bedside. Vitals remain stable, see flowsheet.
--- NOTE | 2018-05-23 11:28 | NUR ---
Stat chest xray placed. Patient post right thorancentesis, tolerated well. Removed 850 cc of fluid, patient requested that staff stop during procedure due to discomfort and coughing. Bandage applied to site. Vitals remain stable at this time. Family here at this time at bedside. Case manger discussing hospice with patient and family.
--- NOTE | 2018-05-23 12:01 | RAD ---
CHEST AP ONLY 11:28 AM Clinical indications: Status post thoracentesis COMPARISON: May 20, 2018. Findings: Moderate size left-sided pleural effusion is seen in association with compressive atelectasis or consolidative infiltrate of the left lung base. This is stable. There is a moderate size right-sided pleural effusion with associated compressive atelectasis or consolidative infiltrate of the right lung base. The right-sided pleural effusion appears smaller after thoracentesis. Small right apical pneumothorax is now seen measuring 14 mm from the right apical edge. A sternotomy is evident. Heart size is prominent but stable. The mediastinum is unchanged. Impression: Decrease in size of right-sided pneumothorax after thoracentesis. Small right apical pneumothorax is now evident. Electronically signed by: Raul Mariscal MD (05/23/2018 11:57 AM) [id number]
--- NOTE | 2018-05-23 12:44 | PDOC ---
PROGRESS NOTES Assessment 1. Acute on chronic diastolic heart failure: Recent 2-D echocardiogram 03/09/18 showed LVEF 55-60%, restrictive diastolic dysfunction, moderate to severe tricuspid regurgitation and moderate pulmonary hypertension. Continue diuresis with Lasix. 2. Bilateral pleural effusions: Recurrent. Plans for thoracentesis today. Consider PleurX cath. 3. Coronary artery disease s/p coronary artery bypass surgery, clinically stable and chest pain-free. MPI 2016 did not show any significant ischemia. He usually follows with [facility] cardiology. Records reviewed. Continue current secondary prevention measures. 4. Permanent atrial fibrillation: Heart rate well-controlled. He is not on any long-term anticoagulation probably since he is a poor candidate - defer to primary divorce lawyer. 5. Possible pneumonia: On intravenous antibiotics 6. Hypertension: Controlled Plans for hospice. Continue supportive care. Will sign off. Call with any questions or concerns. Subjective short of breath with conversation. resting quietly with friend at bedside. no chest pain. Objective Vital Signs Date Time Temp Pulse Resp B/P (MAP) Pulse Ox O2 Delivery O2 Flow Rate FiO2 05/23/18 09:54 82 21 99/59 (72) 98 Nasal Cannula 4.0 05/23/18 07:32 97.4 Intake and Output 05/23/18 07:00 Intake Total 1805 ml Output Total 500 ml Balance 1305 ml Intake Oral 1355 ml IV Total 450 ml Output Urine Total 500 ml # Voids 4 # Bowel Movements 3 Abdomen: Normal bowel sounds Heart: Other (IRR, no gallops, clicks or rubs) Extremities: No cyanosis General: Oriented X3, Cooperative, mild distress HEENT: Atraumatic Lungs: Other (decreased with bilateral crackles) Neck: Other (+JVD) Neuro: Normal speech Psych/Mental Status: Mental status NL Review of Relevant I have reviewed the following items mansi (where applicable) has been applied. Labs Laboratory Tests Test 05/22/18 16:35 05/23/18 05:47 Vancomycin Level Trough 15.2 mcg/mL (10.0-20.0) Vancomycin Last Dose Date 05/21/18 Vancomycin Last Dose Time 1700 White Blood Count 5.6 x10^3/uL (4.0-11.0) Red Blood Count 3.11 x10^6/uL (4.30-5.70) Hemoglobin 9.4 g/dL (13.0-17.5) Hematocrit 29.5 % (39.0-53.0) Mean Corpuscular Volume 95 fL (79-100) Mean Corpuscular Hemoglobin 30 pg (25-35) Mean Corpuscular Hemoglobin Concent 32 g/dL (31-37) Red Cell Distribution Width 20.0 % (11.5-14.5) Platelet Count 93 x10^3/uL (140-400) Neutrophils (%) (Auto) 85 % (31-73) Lymphocytes (%) (Auto) 7 % (24-48) Monocytes (%) (Auto) 7 % (0-9) Eosinophils (%) (Auto) 1 % (0-3) Basophils (%) (Auto) 1 % (0-3) Neutrophils # (Auto) 4.8 x10^3uL (1.8-7.7) Lymphocytes # (Auto) 0.4 x10^3/uL (1.0-4.8) Monocytes # (Auto) 0.4 x10^3/uL (0.0-1.1) Eosinophils # (Auto) 0.0 x10^3/uL (0.0-0.7) Basophils # (Auto) 0.0 x10^3/uL (0.0-0.2) Prothrombin Time 12.2 SEC (9.4-11.4) Prothromb Time International Ratio 1.2 (0.9-1.1) Activated Partial Thromboplast Time 32 SEC (23-33) Sodium Level 145 mmol/L (136-145) Potassium Level 4.7 mmol/L (3.5-5.1) Chloride Level 106 mmol/L (98-107) Carbon Dioxide Level 36 mmol/L (21-32) Anion Gap 3 (6-14) Blood Urea Nitrogen 24 mg/dL (8-26) Creatinine 1.4 mg/dL (0.7-1.3) Estimated GFR (Cockcroft-Gault) 47.7 Glucose Level 85 mg/dL (70-99) Calcium Level 8.4 mg/dL (8.5-10.1) Magnesium Level 2.1 mg/dL (1.8-2.4) Medications Current Medications Albuterol/ Ipratropium (Duoneb) 3 ml TID NEB Last administered on 05/20/18at 16: 01; Start 05/20/18 at 14:00; Stop 05/20/18 at 16:27; Status DC Metoprolol Succinate (Toprol Xl) 25 mg DAILY PO Last administered on 05/23/18 08:40; Start 05/21/18 at 09:00 Potassium Chloride (Klor-Con) 20 meq DAILY10 PO ; Start 05/21/18 at 10:00; Stop 05/21/18 at 10:00; Status DC Heparin Sodium (Porcine) (Heparin Sodium) 5,000 unit Q8HRS SQ Last administered on 05/22/18 20:43; Start 05/20/18 at 15:00 Magnesium Oxide (Magnesium Oxide) 400 mg BID PO Last administered on 05/22/18 20:44; Start 05/20/18 at 15:00 Potassium Chloride (Klor-Con) 40 meq BID PO Last administered on 05/22/18 20: 44; Start 05/20/18 at 15:00 Vancomycin HCl (Vanco Per Pharmacy) 1 each PRN DAILY PRN MC SEE COMMENTS Last administered on 05/22/18 17:14; Start 05/20/18 at 16:30 Piperacillin Sod/ Tazobactam Sod (Zosyn Per Pharmacy) 1 each PRN DAILY PRN MC SEE COMMENTS; Start 05/20/18 at 16:30 Albuterol/ Ipratropium (Duoneb) 3 ml RTQID NEB Last administered on 05/23/18 04 :57; Start 05/20/18 at 20:00 Vancomycin HCl 2 gm/Sodium Chloride 500 ml @ 250 mls/hr 1X ONCE IV Last administered on 05/20/18at 17:51; Start 05/20/18 at 17:00; Stop 05/20/18 at 18:59 ; Status DC Piperacillin Sod/ Tazobactam Sod 4.5 gm/Sodium Chloride 50 ml @ 100 mls/hr Q6HRS IV Last administered on 05/23/18 06:12; Start 05/20/18 at 18:00 Vancomycin HCl 1.25 gm/Sodium Chloride 250 ml @ 167 mls/hr Q24H IV Last administered on 05/22/18 17:13; Start 05/21/18 at 17:00 Vancomycin HCl (Vancomycin Trough Level) 1 each 1X ONCE MC ; Start 05/22/18 at 16:30; Stop 05/22/18 at 16:31; Status DC Lactobacillus Rhamnosus (Culturelle) 1 cap BID PO Last administered on at 20:44; Start 05/20/18 at 21:00 Heparin Sodium (Porcine) (Heparin Sodium) 5,000 unit Q8HRS SQ ; Start 05/20/18 at 22:00; Stop 05/20/18 at 22:00; Status DC Furosemide (Lasix) 40 mg DAILY IVP Last administered on 05/23/18at 08:39; Start 05/20/18 at 19:30 Nicotine (Nicoderm Cq 21mg) 1 patch DAILY TD ; Start 05/21/18 at 18:30; Stop at 18:30; Status DC Non-Formulary Medication ([place] Carbonate ) 1 tab BID PO ; Start 05/22/18 at 21:00; Stop 05/22/18 at 21:00; Status Cancel Vancomycin HCl (Vancomycin Trough Level) 1 each 1X ONCE MC ; Start 05/24/18 at 16:30; Stop 05/24/18 at 16:31 Active Scripts Active Klor-Con M20 (Potassium Chloride) 20 Meq Tab.er.prt 20 Meq PO DAILY10 30 Days Duoneb 0.5-3(2.5) Mg/3 Ml (Albuterol/Ipratropium) 3 Ml Ampul.neb 3 Ml NEB TID Reported Metoprolol Succinate ( Xl ) (Metoprolol Succinate) 25 Mg Tab.er.24h 1 Tab PO DAILY LAST DOSE GIVEN: 03/10/18 0800 Furosemide 40 Mg Tablet 40 Mg PO DAILY LAST DOSE GIVEN: 03/10/18 0800 Vitals/I & O Vital Sign - Last 24 Hours 05/22/18 05/22/18 05/22/18 05/22/18 13:00 14:00 15:00 16:00 Pulse 70 79 98 85 Resp 20 12 16 16 B/P (MAP) 104/53 (70) 95/60 (72) 100/61 (74) 96/58 (71) Pulse Ox 97 98 95 96 O2 Delivery Nasal Cannula Nasal Cannula Nasal Cannula Nasal Cannula O2 Flow Rate 2.0 2.0 2.0 2.0 05/22/18 05/22/18 05/22/18 05/22/18 16:26 17:02 18:33 19:00 Pulse 77 88 94 Resp 16 16 12 B/P (MAP) 95/54 (68) 89/57 (68) 97/63 (74) Pulse Ox 100 99 94 91 O2 Delivery Nasal Cannula Nasal Cannula Nasal Cannula Nasal Cannula O2 Flow Rate 2.0 2.0 2.0 2.0 05/22/18 05/22/18 05/22/18 05/22/18 20:00 20:08 21:00 22:00 Pulse 88 90 92 Resp 14 16 16 B/P (MAP) 95/89 (91) 99/58 (72) 104/56 (72) Pulse Ox 90 97 90 93 O2 Delivery Nasal Cannula Nasal Cannula Nasal Cannula Nasal Cannula O2 Flow Rate 2.0 2.0 2.0 2.0 05/22/18 05/23/18 05/23/18 05/23/18 23:00 00:00 01:00 02:00 Pulse 90 90 90 86 Resp 14 14 14 13 B/P (MAP) 111/60 (77) 101/56 (71) 104/71 (82) 92/57 (69) Pulse Ox 91 91 91 93 O2 Delivery Nasal Cannula Nasal Cannula Nasal Cannula Nasal Cannula O2 Flow Rate 2.0 2.0 2.0 3.0 05/23/18 05/23/18 05/23/18 05/23/18 03:00 04:00 04:57 05:00 Pulse 88 82 80 Resp 13 13 18 B/P (MAP) 106/80 (89) 104/67 (79) 111/56 (74) Pulse Ox 93 97 98 97 O2 Delivery Nasal Cannula Nasal Cannula Nasal Cannula Nasal Cannula O2 Flow Rate 3.0 4.0 2.0 4.0 05/23/18 05/23/18 05/23/18 05/23/18 06:02 07:26 07:32 08:40 Temp 97.4 Pulse 76 86 86 Resp 16 21 B/P (MAP) 97/52 (67) 118/58 (78) 118/58 Pulse Ox 100 100 100 O2 Delivery Nasal Cannula Nasal Cannula Nasal Cannula O2 Flow Rate 4.0 4.0 4.0 05/23/18 05/23/18 08:59 09:54 Pulse 86 82 Resp 21 21 B/P (MAP) 97/53 (68) 99/59 (72) Pulse Ox 95 98 O2 Delivery Nasal Cannula Nasal Cannula O2 Flow Rate 4.0 4.0 Intake and Output 05/22/18 05/22/18 05/23/18 15:00 23:00 07:00 Intake Total 870 ml 660 ml 275 ml Output Total 400 ml 100 ml Balance 470 ml 560 ml 275 ml SAUNDRA MAYO SAP SENIOR DEVELOPER May 23, 2018 12:44
[2018-05-23] MEDS ORDERED: MORPHINE SULFATE 4 MG/ML DISP.SYRIN. IV PRN (13:00)
--- NOTE | 2018-05-23 13:10 | RAD ---
EXAM: Sonographic guided thoracentesis. HISTORY: Pleural effusion. TECHNIQUE: The risks of the procedure were discussed with the patient and written and verbal consent was obtained. A timeout was performed. Sonographic imaging of the chest was performed and a moderate right pleural effusion was identified. The skin overlying this region was sterilely prepped, draped and infiltrated with 1 percent lidocaine. A catheter was advanced into the pleural space and 850 cc pleural fluid was collected. The patient refused additional fluid collection due to discomfort in the upright position. The catheter was removed and a sterile bandage was placed at the needle entry site. A post thoracentesis chest Demonstrates slight interval decrease in a moderate right pleural effusion. There is a stable moderate left pleural effusion. There is stable diffuse interstitial infiltrate likely due to congestion. There is suspected superimposed bilateral lower lobe compressive atelectasis or partial collapse. There is enlargement of the cardiac silhouette and evidence of prior CABG. There is a small right pneumothorax. IMPRESSION: 1. Sonographic guided right thoracentesis with yield of 850 cc pleural fluid. The patient refused additional fluid drainage. 2. Decrease in a moderate right pleural effusion status post thoracentesis. There is a small right apical pneumothorax which is described on the chest radiograph report submitted on the same date. Please refer to the chest radiograph report for additional thoracic findings. Electronically signed by: Lolly Ashley MD (05/23/2018 1:07 PM) [id number]
--- NOTE | 2018-05-23 13:28 | NUR ---
Hospice here at this time to meet with family. Additional family sitting with patient, pt complaining of pain to right side. PRN morphine given to patient with relief notified.
--- NOTE | 2018-05-23 14:29 | NUR ---
Plan is to admit patient to inpatient hospice with Elysia under Dr. Michel. Patient and family aware. Plan is to move patient to room 117. Per patient, pt wants no further treatment and would like to remain comfortable.
--- NOTE | 2018-05-23 15:53 | NUR ---
Patient moved to room 117. placed on inpatient hospice at this time.
--- NOTE | 2018-05-23 19:53 | DS ---
DATE OF DISCHARGE: 05/23/2018 HOSPITAL COURSE: The patient is an 87-year-old male patient, who was admitted with worsening shortness of breath due to [id number] diastolic congestive heart failure. He is known to have restrictive diastolic dysfunction, [id number] tricuspid regurgitation, moderate pulmonary hypertension. He has bilateral pleural effusion, has had thoracentesis multiple times, in fact he did have thoracentesis today. The patient has been declining multiple admissions and he basically requested comfort care and hospice care as he is feeling very tired and cannot go longer with all these pain and shortness of breath and suffering. PHYSICAL EXAMINATION: GENERAL: When I saw him this afternoon, he was resting, slightly propped up in bed, in no apparent respiratory distress. He was pale, cachectic, but no jaundice, cyanosis, or thyromegaly. No jugular venous distention, but generalized anasarca. VITAL SIGNS: His heart rate was 82, blood pressure was 96/52, temperature was 98, respiratory rate was 18 and oxygen saturation was 96% on 4 liters of oxygen. HEAD, EYES, EARS, NOSE AND THROAT: Showed normocephalic, atraumatic. NECK: Supple. HEART: Showed normal first and second heart sounds. No gallop, rub or murmur. CHEST: Shows central trachea, equally reduced expansion, reduced air entry with dull percussion noted and absent breath sounds bilaterally posteriorly. ABDOMEN: Scaphoid, soft, nontender. NEUROLOGIC: He was awake, alert. All his cranial nerves are intact. He moves upper extremities to much good extent than lower extremities. EXTREMITIES: He has generalized anasarca. LABORATORY DATA: His lab work this morning showed a white cell count 5600, hemoglobin 9.4, hematocrit 29.5, MCV 95, and platelet count of 93,000. His chemistry showed serum sodium of 145, potassium 4.7, chloride 106, bicarbonate 36, anion gap of 3, BUN 24, creatinine 1.4, estimated GFR was 48 mL per minute, his glucose was 85, calcium was 8.4, magnesium was 2.1. His prothrombin time was 12.2, INR of 1.2, APTT was 32 and D-dimer was 2.4. Here was admitted to inpatient hospice for comfort and end of life care. FINAL DISCHARGE DIAGNOSES: Acute on chronic diastolic congestive heart failure with restrictive diastolic dysfunction, [id number] tricuspid regurgitation, moderate pulmonary hypertension, recurrent bilateral pleural effusion, coronary artery disease, permanent atrial fibrillation, questionable pneumonia and in fact hypotension. ALVARO BURT MD DR: KRYSTINA/nam JOB#: [id number] / [id number]
== END 2018-05-23 15:45 | disposition hospice, inpatient (51) | DRG 186 ==
LOC: ICU 12:50
PROVIDERS: ADMIT Family Medicine; ATTEND Family Medicine
PROC: 0W993ZZ Drainage of Right Pleural Cavity, Percutaneous Approach (ICD-10-PCS; principal; 2018-05-20)
DX: J90 Pleural effusion, not elsewhere classified (principal); J18.9 Pneumonia, unspecified organism; I50.33 Acute on chronic diastolic (congestive) heart failure; C85.90 Non-Hodgkin lymphoma, unspecified, unspecified site; J98.11 Atelectasis; I11.0 Hypertensive heart disease with heart failure; I08.1 Rheumatic disorders of both mitral and tricuspid valves; I25.10 Atherosclerotic heart disease of native coronary artery without angina pectoris; E78.5 Hyperlipidemia, unspecified; I27.20 Pulmonary hypertension, unspecified; I48.2 Chronic atrial fibrillation; N40.0 Benign prostatic hyperplasia without lower urinary tract symptoms; Z80.7 Family history of other malignant neoplasms of lymphoid, hematopoietic and related tissues; Z82.49 Family history of ischemic heart disease and other diseases of the circulatory system; Z95.1 Presence of aortocoronary bypass graft
CPT/HCPCS: 36415; 71045; 71046; 71250; 76942; 80048; 80053; 80202; 81001; 82550; 83690; 83735; 83880; 84145; 84443; 84484; 85025; 85379; 85610; 85730; 86713; 87641; 93005; 94640; J1644; J1940; J2270; J2543; J3370; J7040; J7050; J7620

== ENCOUNTER 2018-05-23 16:37 | Inpatient (IN) | payer OTHER ==
[~2018-05-23] VITALS: Ht 182.9 cm; Wt 75.7 kg
[~2018-05-23 16:37] MED LIST changes: +LITH300T30 PO
[2018-05-23] MEDS ORDERED: ACETAMINOPHEN 650 MG SUPP.RECT. PR PRN (16:45)
[2018-05-23] MEDS ORDERED: MORPHINE SULFATE 20 MG/ML CONC SOLUTION. SL PRN (16:45)
[2018-05-23] MEDS ORDERED: BISACODYL 10 MG SUPP.RECT PR PRN (16:45)
[2018-05-23] MEDS ORDERED: HYOSCYAMINE 0.125 MG TAB.RAPDIS PO PRN (16:45)
[2018-05-23] MEDS ORDERED: ONDANSETRON ODT 4 MG TAB.RAPDIS PO PRN (16:45)
--- NOTE | 2018-05-23 17:08 | NUR ---
The patient, GEOGRINA FERNANDEZ, 87 y/o, M admitted by ALVARO BURT MD, was given written information regarding hospital policies, unit procedures and contact persons. Valuables were checked and left in room. Patient admitted to inpatient [facility]. Family at bedside at this time. Patient given MS PRN prior to admit, patient comfortable at this time. Resource Teacher here with patient and family and given last rights. Patient has IV in Right FA, remains intact. Orders received from [facility] and placed. Dr. Burt aware of admission. Continue to turn q2h prn and oral care throughout day. Patient able to verbalize wishes, and wishes to keep oxygen on and in place but refuses further treatment except to remain comfortable.
[2018-05-23] MEDS: MORPHINE SULFATE 4 MG/ML DISP.SYRIN. IV PRN (18:22)
[2018-05-23 22:59] VITALS: BP 109/66
[2018-05-24] MEDS: MORPHINE SULFATE 4 MG/ML DISP.SYRIN. IV PRN ×7 (04:00→20:57)
[2018-05-24 04:05] VITALS: BP 103/65
--- NOTE | 2018-05-24 09:04 | NUR ---
pt is resting comfortably at this moment, prn medications provided, see emar. family at bedside with pt. offered to reposition pt, pt refusing at this time. call light within reach for pt and pt's family. will ctm.
--- NOTE | 2018-05-24 10:10 | NUR ---
assessed pt, pt is resting comfortably, does not arouse to voice. lungs are diminished and oxygen is at 90-92% on 4LNC, pulse is irregular in the mid 70s. pt's family is at bedside, family refusing to move pt and reposition pt. will ctm.
--- NOTE | 2018-05-24 16:21 | NUR ---
Continuing to provide comfort measures, alternating ativan and morphine as needed. Family at bedside.
--- NOTE | 2018-05-24 16:30 | NUR ---
Transportation here at this time via wheelchair by [facility] staff. Discharge packet and patient belongings left with patient at this time. Addendum: 05/24/18 at 1641 by BARNEY BECERRA RN wrong patient
--- NOTE | 2018-05-24 21:35 | NUR ---
Continuing to provide comfort measures, alternating IV Ativan and IV Morphine as needed. Family at bedside. Oral care given. Lala from [facility] had meeting with family that was at bedside.
--- NOTE | 2018-05-24 23:24 | PN ---
DATE: 05/24/2018 SUBJECTIVE: The patient was admitted to inpatient hospice care. He is resting comfortably in no apparent respiratory distress. He does not arouse to voice. His vital signs have been stable. His oxygen saturation was 90-92% on 4 liters of oxygen. His pulse is regular in the mid 70s. The patient's family is at the bedside. We would continue with comfort care. ALVARO BURT MD DR: KRYSTINA/nam JOB#: [id number] / [id number]
--- NOTE | 2018-05-25 00:40 | NUR ---
At 0025 pt was assessed by 2 RN and determined that the pt had no response to verbal or tactile stimuli; no breath sounds, respiratory chest movement or apical heartbeat for 1 full minute; no gag reflex; and no pupillary response to light. Pt was pronounced at 0030. Next of kin Satnam Marx (son) was notified of passing. Lalit with [facility] called, referral #[id number]. Lala at [facility] called and notified of . [facility] called and made aware of passing.
--- NOTE | 2018-05-25 04:35 | NUR ---
Satnam (son) left around 0245 and stated that no other family members will be up to see the body. Satnam took all belongings except a Rosary that stayed with the pt. Call placed to Sally (friend) notifying her of pts passing. Scottie Hernandez used equipment sales representative here to take body around 0430.
--- NOTE | 2018-06-03 14:38 | DS ---
DATE OF DISCHARGE: 05/25/2018 The patient is an 87-year-old male patient, who was originally admitted to acute care on 05/21/2018 with basically acute on chronic diastolic congestive heart failure and the patient's condition has deteriorated and is the patient opted for hospice and comfort care. He has acute on chronic diastolic congestive heart failure with restrictive diastolic dysfunction. He has large bilateral pleural effusion that we recommended to arrange for a radiologist to do a thoracentesis. The patient has had this done numerous times and he basically requested to go on hospice and given that his general condition has been deteriorating. A decision was made to admit him to inpatient hospice and was basically started on comfort care. We discontinued all his other medications except morphine and Ativan. The patient has been level of consciousness, has gradually worsened and around 12:00 midnight, the patient has no response to verbal or tactile stimuli. No sinus bleeding, no breath sounds are audible and no heart sounds were audible. The patient was pronounced around 12:30 on 05/25/2018. Cause of cardiopulmonary arrest, acute on chronic diastolic congestive heart failure, severe pulmonary hypertension and pneumonia. ALVARO BURT MD DR: KRYSTINA/nam JOB#: [id number] / [id number]
== END 2018-05-25 04:35 | disposition expired | DRG 291 ==
LOC: 1 SOUTH 16:37
PROVIDERS: ADMIT Internal Medicine; ATTEND Internal Medicine
DX: I11.0 Hypertensive heart disease with heart failure (principal); J18.9 Pneumonia, unspecified organism; Z51.5 Encounter for palliative care; I50.33 Acute on chronic diastolic (congestive) heart failure; I27.20 Pulmonary hypertension, unspecified; I48.2 Chronic atrial fibrillation; I25.10 Atherosclerotic heart disease of native coronary artery without angina pectoris; I07.1 Rheumatic tricuspid insufficiency; E78.5 Hyperlipidemia, unspecified; Z79.899 Other long term (current) drug therapy; Z95.1 Presence of aortocoronary bypass graft; I46.9 Cardiac arrest, cause unspecified
CPT/HCPCS: J2060; J2270; Q5005